=== PATIENT | female | born 1965 | race Caucasian/White ===

== ENCOUNTER 2022-07-13 16:16 | Emergency (ER) | payer OTHER, SELFPAY ==
--- NOTE | ~2022-07-13 | US_ITS ---
EXAMINATION: US VENOUS ULTRASOUND WITH DOPPLER LOWER EXTREMITY, BILATERAL CLINICAL INFORMATION: Pain. Swelling. History of recent travel. COMPARISON: None TECHNIQUE: Ultrasound of the deep veins is performed from the hip to the calf with compression sonography and color and pulse Doppler assessment. Spectral analysis with color-flow imaging is performed. FINDINGS: RIGHT: There is normal venous compression and respiratory variation and augmented flow. The visualized common femoral vein, superficial femoral vein, profunda femoral vein, popliteal vein, and the trifurcation region shows no evidence of deep venous thrombosis. There is no significant popliteal fossa cyst. LEFT: There is normal venous compression and respiratory variation and augmented flow. The visualized common femoral vein, superficial femoral vein, profunda femoral vein, popliteal vein, and the trifurcation region shows no evidence of deep venous thrombosis. There is no significant popliteal fossa cyst. If the patient's symptoms persist, followup ultrasound in 5 days 7 days might be of value to exclude proximal propagation from a non-visualized calf vein. US/US venous duplex LE BI IMPRESSION: No DVT demonstrated in the bilateral lower extremity.
--- NOTE | ~2022-07-13 | CT_ITS ---
EXAMINATION: CT HEAD WITHOUT CONTRAST CLINICAL INFORMATION: Dizziness. COMPARISON: None. TECHNIQUE: Contiguous axial imaging was performed from the skull base to vertex without intravenous administration of contrast. Coronal and sagittal reformatted images are performed at the CT scanner. [This CT examination was performed using dose optimization techniques as appropriate, variously including the following: *Automated exposure control *Adjustment of mA and/or kV according to patient size (this includes techniques or standardized protocols for targeted exams where dose is matched to indication/reason for exam; i.e. extremities or head) *Use of iterative reconstruction technique] DLP: 670 mGy-cm. FINDINGS: There is no evidence of acute intracranial hemorrhage or territorial infarction. No abnormal mass-effect or midline shift is seen. Goetz to white matter differentiation is well preserved. No extra-axial fluid collections are identified. The ventricles are normal in size. There is no abnormal attenuation within the brain parenchyma. There is no osseous abnormality. The mastoid air cells and visualized portions of the paranasal sinuses are well-aerated. CT/CT head/brain wo IV con IMPRESSION: No acute intracranial pathology.
--- NOTE | ~2022-07-13 | XR_ITS ---
EXAMINATION: XR CHEST CLINICAL INFORMATION: Shortness of breath. COMPARISON: None TECHNIQUE: Frontal view of the chest was obtained. 5:45 PM FINDINGS: No significant abnormality is noted involving the heart, lungs, mediastinum, bony thorax or soft tissues. XR/XR chest 1V IMPRESSION: Unremarkable examination.
--- NOTE | ~2022-07-13 | CT_ITS ---
EXAMINATION: CT ANGIOGRAM OF THE CHEST WITH AND WITHOUT CONTRAST (CT PULMONARY ANGIOGRAM FOR PE) CLINICAL INFORMATION: Reason for Exam CP, SOB, recent travel, elevated D-dimer COMPARISON: Chest x-ray 07/13/2022 TECHNIQUE: Prior to contrast administration, noncontrast localization images were obtained. Subsequently, multidetector volumetric imaging was performed from the thoracic inlet to below the diaphragms following the administration of 65 mL Omnipaque 350 intravenous contrast. No contrast reaction reported Sagittal, coronal, and MIP oblique sagittal reformatted images were obtained on the CT workstation, uploaded to PACS, and reviewed. This CT examination was performed using dose optimization techniques as appropriate, variously including the following: *Automated exposure control *Adjustment of mA and/or kV according to patient size (this includes techniques or standardized protocols for targeted exams where dose is matched to indication/reason for exam; i.e. extremities or head) *Use of iterative reconstruction technique Total exam dose-length product 349 mGy-cm FINDINGS: QUALITY OF STUDY/CONTRAST BOLUS: Satisfactory. PULMONARY ARTERIES: No central or segmental pulmonary emboli. THORACIC AORTA: No aneurysm or dissection. LUNG: No focal consolidation, nodules or masses. PLEURA: No pleural effusion or pneumothorax. MEDIASTINUM: Normal heart size. No pericardial effusion. No hilar or mediastinal lymphadenopathy. No evidence of septal bowing or right heart strain. CORONARY ARTERY CALCIFICATION: None visualized on this study. CHEST WALL/AXILLA: No axillary or internal mammary lymphadenopathy. OSSEOUS STRUCTURES: No acute or suspicious osseous abnormality. UPPER ABDOMEN: Multiple small scattered hypodense lesions of the liver. Largest measuring about 1 cm. These are too small to fully characterize. Probable hepatic cysts. No reflux of contrast into the hepatic veins to suggest elevated right heart pressures. CT/CT angio chest PE protocol IMPRESSION: Normal CT of chest. No evidence of pulmonary embolism. VTE: negative
--- NOTE | 2022-07-13 16:49 | ECG_ITS ---
Test Reason : SOB Blood Pressure : / mmHG Vent. Rate : 102 BPM Atrial Rate : 102 BPM P-R Int : 152 ms QRS Dur : 076 ms QT Int : 306 ms P-R-T Axes : 035 -07 -12 degrees QTc Int : 398 ms Sinus tachycardia Minimal voltage criteria for LVH, may be normal variant ( R in aVL ) ST & T wave abnormality, consider anterior ischemia Abnormal ECG No previous ECGs available Referred By: Tyson Shell Electronically Signed By:TOÑITO PERES MD
[2022-07-13 16:51] VITALS: PULSE 105; RESP 18; TEMP 37.8; O2SAT 98; BMI 37.8
--- NOTE | 2022-07-13 16:52 | ED_ITS ---
HPI - General Adult General Chief complaint: Arrhythmia/Palpitations <LILY Cameron - Last Filed: 07/14/22 11:29> Stated complaint: headache gait unsteady <LILY Cameron - Last Filed: 07/14/22 11:29> Time Seen by Provider: 07/13/22 17:40 <LILY Cameron - Last Filed: 07/14/22 11:29> Source: patient <Lemuel Atkinson MD - Last Filed: 07/13/22 22:56> Mode of arrival: ambulatory <Lemuel Atkinson MD - Last Filed: 07/13/22 22:56> Limitations: no limitations <Lemuel Atkinson MD - Last Filed: 07/13/22 22:56> History of Present Illness HPI narrative: 56-year-old female with a history of POTS syndrome who the presents emergency department for evaluation of headache, visual change, unable to sleep, feeling off balance. Patient states that she was diagnosed with POTS syndrome approximately 2 years prior and had a positive tilt-table test. She has been taking midodrine but she states for the past 2 months she thinks that her symptoms have returned. She states that she has been having constant palpitations. She feels like her heart is beating fast. She states she can feel her heart beating in her head and her neck. She states that she has had not been able sleep for 1 month secondary to the pounding sensation in her head. She did have a 72 hour Holter monitor and was told by her PCP that she had frequent PVCs. Patient states she traveled to [facility] for vacation from July 04 July 11, this was a 6 hour trip. She states that while she was in [facility] she did have swelling of her toes but this is since resolved and she has no pain or swelling in her lower extremities. She states that last night she was unable to sleep secondary to the constant, throbbing sensation in her head. She states that this the decision is 10/10 at its worst. She states that today she felt as if she was drunk and off balance. She states she also had a change in her vision which she describes as auras-lights around objects. The the she states that she does get occasional headaches but does not have a history of migraine syndrome. The patient's review of systems was negative for fever but she did have chills which she attributes to the midodrine. She states she was feeling short of breath and having dyspnea on exertion. Patient denied fever however when she went to an urgent care clinic today she was noted to have a temperature of a 100 degrees to degrees F and here in the emergency department her temperature was 100.0 degrees degrees F <Lemuel Atkinson MD - Last Filed: 07/13/22 22:56> Related Data Home medications: Previous Rx's Medication Instructions Recorded metoclopramide HCl 10 mg tablet 10 mg PO Q6H PRN nausea and 07/13/22 (Reglan) vomiting #14 tabs <LILY Cameron - Last Filed: 07/14/22 11:29> Allergies/adverse reactions: Allergies Allergy/AdvReac Type Severity Reaction Status Date / Time No Known Allergies Allergy Verified 07/13/22 16:49 <LILY Cameron - Last Filed: 07/14/22 11:29> Review of Systems Review of Systems: Yes all other systems are reviewed and are negative <Lemuel Atkinson MD - Last Filed: 07/13/22 22:56> [facility] Past Medical History [facility] Narrative: Past medical history: POTS syndrome. Social history: She denies tobacco use. She occasionally drinks alcohol. She denies drug use. She is a nurse. <Lemuel Atkinson MD - Last Filed: 07/13/22 22:56> Social History Social History: Social History Advance Directives: No Advance Directives Information Provided: No <LILY Cameron - Last Filed: 07/14/22 11:29> Physical Exam ED Vital Signs: Vital Signs - 24 hr 07/13/22 16:51 07/13/22 17:29 07/13/22 17:50 Temperature 100.0 F 98.4 F Pulse Rate 105 H 87 Respiratory Rate 18 20 Blood Pressure 75/45 L 124/75 Pulse Oximetry 98 98 Oxygen Delivery Method Room Air Room Air 07/13/22 19:57 07/13/22 22:08 Temperature 98.6 F Pulse Rate 94 81 Respiratory Rate 19 20 Blood Pressure 125/69 101/63 Pulse Oximetry 93 97 Oxygen Delivery Method Room Air Room Air BMI result Body Mass Index 37.8 <LILY Cameron - Last Filed: 07/14/22 11:29> Vital Signs - 24 hr 07/13/22 16:51 07/13/22 17:29 07/13/22 17:50 Temperature 100.0 F 98.4 F Pulse Rate 105 H 87 Respiratory Rate 18 20 Blood Pressure 75/45 L 124/75 Pulse Oximetry 98 98 Oxygen Delivery Method Room Air Room Air 07/13/22 19:57 07/13/22 22:08 Temperature 98.6 F Pulse Rate 94 81 Respiratory Rate 19 20 Blood Pressure 125/69 101/63 Pulse Oximetry 93 97 Oxygen Delivery Method Room Air Room Air BMI result Body Mass Index 37.8 <Lemuel Atkinson MD - Last Filed: 07/13/22 22:56> Const General: cooperative and no acute distress <Lemuel Atkinson MD - Last Filed: 07/13/22 22:56> Orientation/consciousness: oriented to person and oriented to place <Lemuel Atkinson MD - Last Filed: 07/13/22 22:56> Limitations: no limitations <Lemuel Atkinson MD - Last Filed: 07/13/22 22:56> HENMT Other: No tenderness palpation over temporal arteries, sinuses <Lemuel Atkinson MD - Last Filed: 07/13/22 22:56> Head: Yes normal to inspection, Yes normocephalic and Yes atraumatic <Lemuel Atkinson MD - Last Filed: 07/13/22 22:56> Ears: external ears normal <Lemuel Atkinson MD - Last Filed: 07/13/22 22:56> General nose exam: Normal external nose present <Lemuel Atkinson MD - Last Filed: 07/13/22 22:56> Face and sinus: Yes normal facial exam <Lemuel Atkinson MD - Last Filed: 07/13/22 22:56> Mouth: Normal oral and palatal mucosa present <MD Tierney Lim Last Filed: 07/13/22 22:56> Throat: Yes posterior oropharynx normal <MD Tierney Lim Last Filed: 07/13/22 22:56> Eyes General: appearance normal, both eyes and all related structures <Lemuel feliciano MD - Last Filed: 07/13/22 22:56> Pupils: Equal, round and reactive pupils present <MD Tierney Lim Last Filed: 07/13/22 22:56> Neck Neck: Yes normal visual inspection, Yes no lymphadenopathy, Yes trachea midline and Yes supple <Lemuel Atkinson MD - Last Filed: 07/13/22 22:56> Chest Chest palpation & inspection: normal inspection of the chest and normal palpation of entire chest wall <MD Tierney Lim Last Filed: 07/13/22 22:56> Resp Effort & Inspection: normal respiratory effort and able to speak in complete sentences <Vandana Atkinson MD - Last Filed: 07/13/22 22:56> Auscultation: clear to auscultation bilaterally <Lemuel Atkinson MD - Last Filed: 0 07/13/22 22:56> Cardio Rate: regular rate <MD Tierney Lim Last Filed: 07/13/22 22:56> Rhythm: regular rhythm <MD Tierney Lim Last Filed: 07/13/22 22:56> Heart sounds: S1 normal heart sound present, S2 normal heart sound present and no murmurs <MD Tierney Lim Last Filed: 07/13/22 22:56> GI Inspection: Yes normal to inspection <MD Tierney Lim Last Filed: 07/13/22 22:56> Palpation (GI): Soft to palpation, nontender and no guarding <MD Tierney Lim Last Filed: 07/13/22 22:56> Auscultation: normal bowel sounds <MD Tierney Lim Last Filed: 07/13/22 22:56> General: Yes no CVA tenderness <MD Tierney Lim Last Filed: 07/13/22 22:56> Back/Spine/Pelvis Back: no CVA tenderness <Lemuel Atkinson MD - Last Filed: 07/13/22 22:56> Skin General skin exam: no rashes or lesions noted <Lemuel Atkinson MD - Last Filed: 07/13/22 22:56> Neuro General: oriented to person and oriented to place <Lemuel Atkinson MD - Last Filed: 07/13/22 22:56> Cranial nerves: Yes CN's II-XII intact bilaterally and Yes Equal, round and reactive pupils present <Lemuel Atkinson MD - Last Filed: 07/13/22 22:56> Cognition (Neuro): normal cognition <Lemuel Atkinson MD - Last Filed: 07/13/22 22:56> Motor exam (neuro): 5/5 motor strength present throughout <Lemuel Atkinson MD - Last Filed: 07/13/22 22:56> Extrem Other: No pitting or nonpitting edema, negative Homans sign, no tenderness palpation of the calves or thighs <Lemuel Atkinson MD - Last Filed: 07/13/22 22:56> General: Yes normal to inspection <Lemuel Atkinson MD - Last Filed: 07/13/22 22:56> Psych Appearance: grossly normal <Lemuel Atkinson MD - Last Filed: 07/13/22 22:56> Speech and movement: Normal speech and movement present <Lemuel Atkinson MD - Last Filed: 07/13/22 22:56> Affect: normal affect <Lemuel Atkinson MD - Last Filed: 07/13/22 22:56> Attitude: cooperative <Lemuel Atkinson MD - Last Filed: 07/13/22 22:56> Thought process: Normal thought process present <Lemuel Atkinson MD - Last Filed: 07/13/22 22:56> Thought content: Normal thought content present <Lemuel Atkinson MD - Last Filed: 22:56> Course Course Course Narrative: RME: 56 yold female with pmh of POTS presents to the ED for headache, dizziness, and shortness of breath for 3 days. negative for any neurodeficits on exam. BIlateral lower extremities negative for swelling or pitting edmea. patient has normal gait. patient new vitals shows hypotension. Patient has been off her midirone. Patient to be brought to the bed in the main ED <LILY Cameron - Last Filed: 07/14/22 11:29> Medications Administered Discontinued Medications Generic Name Dose Route Start Last Admin Trade Name Freq PRN Reason Stop Dose Admin Diphenhydramine HCl 50 mg 07/13/22 18:26 07/13/22 19:34 Diphenhydramine Hcl 50 Mg/Ml Vial IVPUSH 07/13/22 18:27 50 mg ONCE STA Administration Sodium Chloride 1,000 mls @ 999 mls/hr 07/13/22 18:26 07/13/22 20:40 Ns IV 07/13/22 19:26 Infused .Q1H1M STA Infusion Iohexol 100 ml 07/13/22 19:53 07/13/22 19:53 Iohexol 350 Mg/Ml 100 Ml Infus..Btl IV 07/13/22 19:54 65 ml ONCE ONE Administration Ketorolac Tromethamine 15 mg 07/13/22 18:46 07/13/22 19:34 Ketorolac Tromethamine 15 Mg/Ml Vial IVPUSH 07/13/22 18:47 15 mg ONCE STA Administration Ketorolac Tromethamine 15 mg 07/13/22 21:42 07/13/22 22:40 Ketorolac Tromethamine 15 Mg/Ml Vial IVPUSH 07/13/22 21:43 Not Given ONCE ONE Metoclopramide HCl 10 mg 07/13/22 18:26 07/13/22 19:34 Metoclopramide Hcl 10 Mg/2 Ml Vial IVPUSH 07/13/22 18:27 10 mg ONCE STA Administration <LILY Cameron - Last Filed: 07/14/22 11:29> Medications Administered Discontinued Medications Generic Name Dose Route Start Last Admin Trade Name Freq PRN Reason Stop Dose Admin Diphenhydramine HCl 50 mg 07/13/22 18:26 07/13/22 19:34 Diphenhydramine Hcl 50 Mg/Ml Vial IVPUSH 07/13/22 18:27 50 mg ONCE STA Administration Sodium Chloride 1,000 mls @ 999 mls/hr 07/13/22 18:26 07/13/22 20:40 Ns IV 07/13/22 19:26 Infused .Q1H1M STA Infusion Iohexol 100 ml 07/13/22 19:53 07/13/22 19:53 Iohexol 350 Mg/Ml 100 Ml Infus..Btl IV 07/13/22 19:54 65 ml ONCE ONE Administration Ketorolac Tromethamine 15 mg 07/13/22 18:46 07/13/22 19:34 Ketorolac Tromethamine 15 Mg/Ml Vial IVPUSH 07/13/22 18:47 15 mg ONCE STA Administration Ketorolac Tromethamine 15 mg 07/13/22 21:42 07/13/22 22:40 Ketorolac Tromethamine 15 Mg/Ml Vial IVPUSH 07/13/22 21:43 Not Given ONCE ONE Metoclopramide HCl 10 mg 07/13/22 18:26 07/13/22 19:34 Metoclopramide Hcl 10 Mg/2 Ml Vial IVPUSH 07/13/22 18:27 10 mg ONCE STA Administration <Lemuel Atkinson MD - Last Filed: 07/13/22 22:56> Medical Decision Making Medical Decision Making MDM Narrative: 56-year-old female who presents emergency department for evaluation of throbbing headache, visual change, healing off balance, shortness of breath dyspnea on exertion. The patient has a history of POTS syndrome and states that the throbbing headache, feeling a sensation of throbbing in her neck has been going on for several months, worse the last month. Patient's headache however has become worse over the last 24 hours to the point where she is unable to sleep, she describes as a throbbing sensation which is constant and is 9/10 at its worst. The patient had a fever to 102 degrees F at an urgent care clinic today. RME at triage was done: The falling was ordered, CBC, BMP, CMP, PT/INR, PTT, troponin, EKG, chest x-ray, CT scan of the head without IV contrast. I added a COVID-19, flu, RSV, blood cultures x2, ESR. I will treat the patient for possible migraine with normal saline x1 L, Reglan 10 mg IV, Benadryl 50 mg IV and Toradol 15 mg IV 1909: D-dimer was elevated at [address] a [address] pulmonary angiogram PE protocol and bilateral lower extremity duplex ultrasounds rule out DVTs. Patient states she also developed diarrhea since she has been here in the emergency department and I ordered is C diff and GI panel. 2144: Duplex ultrasounds of the lower extremities were negative for DVT. CT pulmonary angiogram was negative for PE, no other abnormalities seen by the radiologist. Patient states that her headache pain did improve with the above treatment to 5/10. Patient was ordered to get another dose of Toradol 15 mg IV. Patient's sedimentation rate is pending. 9: Patient's sed rate was normal which is lose giant cell arteritis is the cause of her headaches and visual change. Patient was able to give us a stool sample which will be sent for testing. The patient will be discharged home and I did discuss taking the migraine cocktail as an outpatient: Regular 10 mg orally, Benadryl 50 mg orally and Excedrin migraine 2 pills orally. <Lemuel Atkinson MD - Last Filed: 07/13/22 22:56> Differential Diagnosis The differential includes was not limited to migraine headache, tumor with mass effect, giant cell arteritis, infectious process, RSV, influenza, COVID-19, PE, DVT <Lemuel Atkinson MD - Last Filed: 07/13/22 22:56> Lab Data MDM Lab Attestation statement: I reviewed the patient's lab results. <Lemuel Atkinson MD - Last Filed: 07/13/22 22:56> My interpretation patient's laboratory evaluation a 2nd there are no significant abnormalities to explain the patient's symptoms. High sensitive troponin I was below detectable limits. BNP was 10 which is normal. <Lemuel Atkinson MD - Last Filed: 07/13/22 22:56> Result Diagrams: 07/13/22 17:25 07/13/22 17:25 <LILY Cameron - Last Filed: 07/14/22 11:29> Labs: Lab Results 07/13/22 07/13/22 07/13/22 Range/Units 17:25 17:25 17:25 WBC 6.5 (4.8-10.8) X10*3/uL RBC 4.42 (4.20-5.50) X10*6/uL Hgb 13.7 (12.0-16.0) g/dl Hct 40.7 (37.0-47.0) % MCV 92.1 (80.0-98.0) fL MCH 31.0 (27.0-33.0) pg MCHC 33.7 (31.0-35.0) g/dl RDW 13.5 (11.0-16.0) % Plt Count 186 (160-400) X10*3/uL MPV 8.7 L (9.4-12.3) fL Immature Gran % (Auto) 0.2 (0.0-0.4) % Neut % (Auto) 80.8 H (45-73) % Lymph % (Auto) 10.9 L (20-40) % Crockett % (Auto) 7.6 (2-11) % Eos % (Auto) 0.0 (0-4) % Baso % (Auto) 0.5 (0-2) % Lymph # (Auto) 0.7 L (1.2-4.9) X10*3/uL Crockett # (Auto) 0.5 (0.1-1.2) X10*3/uL Eos # (Auto) 0.0 (0.0-0.4) X10*3/uL Baso # (Auto) 0.0 (0.0-0.2) X10*3/uL Abs Immat Gran (auto) 0.01 (0.00-0.03) X10*3/uL Absolute Neuts (auto) 5.2 (2.0-8.3) x10*3/uL Absolute Nucleated RBC 0.000 (0.0-0.012) X10*3/uL Nucleated RBC % (auto) 0.0 (0.0-0.2) /100WBC ESR PT (10.0-13.1) SEC INR (0.9-1.1) APTT (26.0-36.4) SEC D-Dimer High Sensitivty NG/ML Sodium 135 (135-145) mmol/L Potassium 3.8 (3.3-5.1) mmol/L Chloride 102 (96-108) mmol/L Carbon Dioxide 22 (22-29) mmol/L Anion Gap 15 (12-20) BUN 11 (9-16) mg/dL Creatinine 0.87 (0.5-1.4) mg/dL Estim Creat Clear Calc 86.8 Estimated GFR > 60 POC Glucose (60-115) mg/dL Random Glucose 100 (60-115) mg/dL Lactic Acid (0.5-2.0) mmol/L Calcium 8.9 (8.4-10.2) mg/dL Total Bilirubin 0.6 (0.0-1.0) mg/dL AST 63 H (5-31) U/L ALT 76 H (0-31) U/L Alkaline Phosphatase 63 (39-117) U/L Troponin I High Sens < 3.5 (<3.5-17.0) ng/L B-Natriuretic Peptide (<100) pg/mL Total Protein 6.9 (6.5-8.0) g/dL Albumin 3.9 (3.5-5.0) g/dL Stl C. cayetanensis PCR Stool Rotavirus A PCR Stl Adenov F 40/41 PCR Stool Astrovirus (PCR) Stool Campylobacter PCR Stool Cryptosporidium PCR Stl Sh Tox Pr E STEC PCR Stool E coli O157 PCR Stl Enterotoxigenic E PCR Stool EPEC (PCR) Stool EAEC (PCR) Stl E. histolytica PCR Stool Giardia Lamblia PCR Stl P. shigelloides PCR Stool Salmonella PCR Stool Sapovirus (PCR) Stl Shigella/EIEC PCR St Y.enterocolitica PCR Stool Vibrio (PCR) Stl Vibrio cholerae PCR Stl Norovirus GI/GII PCR C. difficile Tox B Gene (Negative) Influenza Type A (PCR) (Negative) Influenza Type B (PCR) (Negative) RSV RNA Qual (PCR) (Negative) SARS-CoV-2 RNA (RT-PCR) (Negative) 07/13/22 07/13/22 07/13/22 Range/Units 17:25 17:25 17:25 WBC (4.8-10.8) X10*3/uL RBC (4.20-5.50) X10*6/uL Hgb (12.0-16.0) g/dl Hct (37.0-47.0) % MCV (80.0-98.0) fL MCH (27.0-33.0) pg MCHC (31.0-35.0) g/dl RDW (11.0-16.0) % Plt Count (160-400) X10*3/uL MPV (9.4-12.3) fL Immature Gran % (Auto) (0.0-0.4) % Neut % (Auto) (45-73) % Lymph % (Auto) (20-40) % Crockett % (Auto) (2-11) % Eos % (Auto) (0-4) % Baso % (Auto) (0-2) % Lymph # (Auto) (1.2-4.9) X10*3/uL Crockett # (Auto) (0.1-1.2) X10*3/uL Eos # (Auto) (0.0-0.4) X10*3/uL Baso # (Auto) (0.0-0.2) X10*3/uL Abs Immat Gran (auto) (0.00-0.03) X10*3/uL Absolute Neuts (auto) (2.0-8.3) x10*3/uL Absolute Nucleated RBC (0.0-0.012) X10*3/uL Nucleated RBC % (auto) (0.0-0.2) /100WBC ESR Cancelled PT (10.0-13.1) SEC INR (0.9-1.1) APTT (26.0-36.4) SEC D-Dimer High Sensitivty NG/ML Sodium (135-145) mmol/L Potassium (3.3-5.1) mmol/L Chloride (96-108) mmol/L Carbon Dioxide (22-29) mmol/L Anion Gap (12-20) BUN (9-16) mg/dL Creatinine (0.5-1.4) mg/dL Estim Creat Clear Calc Estimated GFR POC Glucose (60-115) mg/dL Random Glucose (60-115) mg/dL Lactic Acid (0.5-2.0) mmol/L Calcium (8.4-10.2) mg/dL Total Bilirubin (0.0-1.0) mg/dL AST (5-31) U/L ALT (0-31) U/L Alkaline Phosphatase (39-117) U/L Troponin I High Sens (<3.5-17.0) ng/L B-Natriuretic Peptide 10 (<100) pg/mL Total Protein (6.5-8.0) g/dL Albumin (3.5-5.0) g/dL Stl C. cayetanensis PCR Stool Rotavirus A PCR Stl Adenov F PCR Stool Astrovirus (PCR) Stool Campylobacter PCR Stool Cryptosporidium PCR Stl Sh Tox Pr E STEC PCR Stool E coli O157 PCR Stl Enterotoxigenic E PCR Stool EPEC (PCR) Stool EAEC (PCR) Stl E. histolytica PCR Stool Giardia Lamblia PCR Stl P. shigelloides PCR Stool Salmonella PCR Stool Sapovirus (PCR) Stl Shigella/EIEC PCR St Y.enterocolitica PCR Stool Vibrio (PCR) Stl Vibrio cholerae PCR Stl Norovirus GI/GII PCR C. difficile Tox B Gene (Negative) Influenza Type A (PCR) NEGATIVE (Negative) Influenza Type B (PCR) NEGATIVE (Negative) RSV RNA Qual (PCR) NEGATIVE (Negative) SARS-CoV-2 RNA (RT-PCR) NEGATIVE (Negative) 07/13/22 07/13/22 07/13/22 Range/Units 17:26 17:26 18:35 WBC (4.8-10.8) X10*3/uL RBC (4.20-5.50) X10*6/uL Hgb (12.0-16.0) g/dl Hct (37.0-47.0) % MCV (80.0-98.0) fL MCH (27.0-33.0) pg MCHC (31.0-35.0) g/dl RDW (11.0-16.0) % Plt Count (160-400) X10*3/uL MPV (9.4-12.3) fL Immature Gran % (Auto) (0.0-0.4) % Neut % (Auto) (45-73) % Lymph % (Auto) (20-40) % Crockett % (Auto) (2-11) % Eos % (Auto) (0-4) % Baso % (Auto) (0-2) % Lymph # (Auto) (1.2-4.9) X10*3/uL Crockett # (Auto) (0.1-1.2) X10*3/uL Eos # (Auto) (0.0-0.4) X10*3/uL Baso # (Auto) (0.0-0.2) X10*3/uL Abs Immat Gran (auto) (0.00-0.03) X10*3/uL Absolute Neuts (auto) (2.0-8.3) x10*3/uL Absolute Nucleated RBC (0.0-0.012) X10*3/uL Nucleated RBC % (auto) (0.0-0.2) /100WBC ESR PT 12.8 (10.0-13.1) SEC INR 1.1 (0.9-1.1) APTT 30.8 (26.0-36.4) SEC D-Dimer High Sensitivty 510 NG/ML Sodium (135-145) mmol/L Potassium (3.3-5.1) mmol/L Chloride (96-108) mmol/L Carbon Dioxide (22-29) mmol/L Anion Gap (12-20) BUN (9-16) mg/dL Creatinine (0.5-1.4) mg/dL Estim Creat Clear Calc Estimated GFR POC Glucose 103 (60-115) mg/dL Random Glucose (60-115) mg/dL Lactic Acid (0.5-2.0) mmol/L Calcium (8.4-10.2) mg/dL Total Bilirubin (0.0-1.0) mg/dL AST (5-31) U/L ALT (0-31) U/L Alkaline Phosphatase (39-117) U/L Troponin I High Sens (<3.5-17.0) ng/L B-Natriuretic Peptide (<100) pg/mL Total Protein (6.5-8.0) g/dL Albumin (3.5-5.0) g/dL Stl C. cayetanensis PCR Stool Rotavirus A PCR Stl Adenov F 40/41 PCR Stool Astrovirus (PCR) Stool Campylobacter PCR Stool Cryptosporidium PCR Stl Sh Tox Pr E STEC PCR Stool E coli O157 PCR Stl Enterotoxigenic E PCR Stool EPEC (PCR) Stool EAEC (PCR) Stl E. histolytica PCR Stool Giardia Lamblia PCR Stl P. shigelloides PCR Stool Salmonella PCR Stool Sapovirus (PCR) Stl Shigella/EIEC PCR St Y.enterocolitica PCR Stool Vibrio (PCR) Stl Vibrio cholerae PCR Stl Norovirus GI/GII PCR C. difficile Tox B Gene (Negative) Influenza Type A (PCR) NEGATIVE (Negative) Influenza Type B (PCR) NEGATIVE (Negative) RSV RNA Qual (PCR) NEGATIVE (Negative) SARS-CoV-2 RNA (RT-PCR) NEGATIVE (Negative) 07/13/22 07/13/22 07/13/22 Range/Units 19:24 19:28 23:10 WBC (4.8-10.8) X10*3/uL RBC (4.20-5.50) X10*6/uL Hgb (12.0-16.0) g/dl Hct (37.0-47.0) % MCV (80.0-98.0) fL MCH (27.0-33.0) pg MCHC (31.0-35.0) g/dl RDW (11.0-16.0) % Plt Count (160-400) X10*3/uL MPV (9.4-12.3) fL Immature Gran % (Auto) (0.0-0.4) % Neut % (Auto) (45-73) % Lymph % (Auto) (20-40) % Crockett % (Auto) (2-11) % Eos % (Auto) (0-4) % Baso % (Auto) (0-2) % Lymph # (Auto) (1.2-4.9) X10*3/uL Crockett # (Auto) (0.1-1.2) X10*3/uL Eos # (Auto) (0.0-0.4) X10*3/uL Baso # (Auto) (0.0-0.2) X10*3/uL Abs Immat Gran (auto) (0.00-0.03) X10*3/uL Absolute Neuts (auto) (2.0-8.3) x10*3/uL Absolute Nucleated RBC (0.0-0.012) X10*3/uL Nucleated RBC % (auto) (0.0-0.2) /100WBC ESR 20 PT (10.0-13.1) SEC INR (0.9-1.1) APTT (26.0-36.4) SEC D-Dimer High Sensitivty NG/ML Sodium (135-145) mmol/L Potassium (3.3-5.1) mmol/L Chloride (96-108) mmol/L Carbon Dioxide (22-29) mmol/L Anion Gap (12-20) BUN (9-16) mg/dL Creatinine (0.5-1.4) mg/dL Estim Creat Clear Calc Estimated GFR POC Glucose (60-115) mg/dL Random Glucose (60-115) mg/dL Lactic Acid 1.1 (0.5-2.0) mmol/L Calcium (8.4-10.2) mg/dL Total Bilirubin (0.0-1.0) mg/dL AST (5-31) U/L ALT (0-31) U/L Alkaline Phosphatase (39-117) U/L Troponin I High Sens (<3.5-17.0) ng/L B-Natriuretic Peptide (<100) pg/mL Total Protein (6.5-8.0) g/dL Albumin (3.5-5.0) g/dL Stl C. cayetanensis PCR Stool Rotavirus A PCR Stl Adenov F 40/41 PCR Stool Astrovirus (PCR) Stool Campylobacter PCR Stool Cryptosporidium PCR Stl Sh Tox Pr E STEC PCR Stool E coli O157 PCR Stl Enterotoxigenic E PCR Stool EPEC (PCR) Stool EAEC (PCR) Stl E. histolytica PCR Stool Giardia Lamblia PCR Stl P. shigelloides PCR Stool Salmonella PCR Stool Sapovirus (PCR) Stl Shigella/EIEC PCR St Y.enterocolitica PCR Stool Vibrio (PCR) Stl Vibrio cholerae PCR Stl Norovirus GI/GII PCR C. difficile Tox B Gene NEGATIVE (Negative) Influenza Type A (PCR) (Negative) Influenza Type B (PCR) (Negative) RSV RNA Qual (PCR) (Negative) SARS-CoV-2 RNA (RT-PCR) (Negative) 07/13/22 Range/Units 23:10 WBC (4.8-10.8) X10*3/uL RBC (4.20-5.50) X10*6/uL Hgb (12.0-16.0) g/dl Hct (37.0-47.0) % MCV (80.0-98.0) fL MCH (27.0-33.0) pg MCHC (31.0-35.0) g/dl RDW (11.0-16.0) % Plt Count (160-400) X10*3/uL MPV (9.4-12.3) fL Immature Gran % (Auto) (0.0-0.4) % Neut % (Auto) (45-73) % Lymph % (Auto) (20-40) % Crockett % (Auto) (2-11) % Eos % (Auto) (0-4) % Baso % (Auto) (0-2) % Lymph # (Auto) (1.2-4.9) X10*3/uL Crockett # (Auto) (0.1-1.2) X10*3/uL Eos # (Auto) (0.0-0.4) X10*3/uL Baso # (Auto) (0.0-0.2) X10*3/uL Abs Immat Gran (auto) (0.00-0.03) X10*3/uL Absolute Neuts (auto) (2.0-8.3) x10*3/uL Absolute Nucleated RBC (0.0-0.012) X10*3/uL Nucleated RBC % (auto) (0.0-0.2) /100WBC ESR PT (10.0-13.1) SEC INR (0.9-1.1) APTT (26.0-36.4) SEC D-Dimer High Sensitivty NG/ML Sodium (135-145) mmol/L Potassium (3.3-5.1) mmol/L Chloride (96-108) mmol/L Carbon Dioxide (22-29) mmol/L Anion Gap (12-20) BUN (9-16) mg/dL Creatinine (0.5-1.4) mg/dL Estim Creat Clear Calc Estimated GFR POC Glucose (60-115) mg/dL Random Glucose (60-115) mg/dL Lactic Acid (0.5-2.0) mmol/L Calcium (8.4-10.2) mg/dL Total Bilirubin (0.0-1.0) mg/dL AST (5-31) U/L ALT (0-31) U/L Alkaline Phosphatase (39-117) U/L Troponin I High Sens (<3.5-17.0) ng/L B-Natriuretic Peptide (<100) pg/mL Total Protein (6.5-8.0) g/dL Albumin (3.5-5.0) g/dL Stl C. cayetanensis PCR Cancelled Stool Rotavirus A PCR Cancelled Stl Adenov F 40/41 PCR Cancelled Stool Astrovirus (PCR) Cancelled Stool Campylobacter PCR Cancelled Stool Cryptosporidium PCR Cancelled Stl Sh Tox Pr E STEC PCR Cancelled Stool E coli O157 PCR Cancelled Stl Enterotoxigenic E PCR Cancelled Stool EPEC (PCR) Cancelled Stool EAEC (PCR) Cancelled Stl E. histolytica PCR Cancelled Stool Giardia Lamblia PCR Cancelled Stl P. shigelloides PCR Cancelled Stool Salmonella PCR Cancelled Stool Sapovirus (PCR) Cancelled Stl Shigella/EIEC PCR Cancelled St Y.enterocolitica PCR Cancelled Stool Vibrio (PCR) Cancelled Stl Vibrio cholerae PCR Cancelled Stl Norovirus GI/GII PCR Cancelled C. difficile Tox B Gene (Negative) Influenza Type A (PCR) (Negative) Influenza Type B (PCR) (Negative) RSV RNA Qual (PCR) (Negative) SARS-CoV-2 RNA (RT-PCR) (Negative) <LILY Cameron - Last Filed: 07/14/22 11:29> Lab Results 07/13/22 07/13/22 07/13/22 Range/Units 17:25 17:25 17:25 WBC 6.5 (4.8-10.8) X10*3/uL RBC 4.42 (4.20-5.50) X10*6/uL Hgb 13.7 (12.0-16.0) g/dl Hct 40.7 (37.0-47.0) % MCV 92.1 (80.0-98.0) fL MCH 31.0 (27.0-33.0) pg MCHC 33.7 (31.0-35.0) g/dl RDW 13.5 (11.0-16.0) % Plt Count 186 (160-400) X10*3/uL MPV 8.7 L (9.4-12.3) fL Immature Gran % (Auto) 0.2 (0.0-0.4) % Neut % (Auto) 80.8 H (45-73) % Lymph % (Auto) 10.9 L (20-40) % Crockett % (Auto) 7.6 (2-11) % Eos % (Auto) 0.0 (0-4) % Baso % (Auto) 0.5 (0-2) % Lymph # (Auto) 0.7 L (1.2-4.9) X10*3/uL Crockett # (Auto) 0.5 (0.1-1.2) X10*3/uL Eos # (Auto) 0.0 (0.0-0.4) X10*3/uL Baso # (Auto) 0.0 (0.0-0.2) X10*3/uL Abs Immat Gran (auto) 0.01 (0.00-0.03) X10*3/uL Absolute Neuts (auto) 5.2 (2.0-8.3) x10*3/uL Absolute Nucleated RBC 0.000 (0.0-0.012) X10*3/uL Nucleated RBC % (auto) 0.0 (0.0-0.2) /100WBC ESR PT (10.0-13.1) SEC INR (0.9-1.1) APTT (26.0-36.4) SEC D-Dimer High Sensitivty NG/ML Sodium 135 (135-145) mmol/L Potassium 3.8 (3.3-5.1) mmol/L Chloride 102 (96-108) mmol/L Carbon Dioxide 22 (22-29) mmol/L Anion Gap 15 (12-20) BUN 11 (9-16) mg/dL Creatinine 0.87 (0.5-1.4) mg/dL Estim Creat Clear Calc 86.8 Estimated GFR > 60 POC Glucose (60-115) mg/dL Random Glucose 100 (60-115) mg/dL Lactic Acid (0.5-2.0) mmol/L Calcium 8.9 (8.4-10.2) mg/dL Total Bilirubin 0.6 (0.0-1.0) mg/dL AST 63 H (5-31) U/L ALT 76 H (0-31) U/L Alkaline Phosphatase 63 (39-117) U/L Troponin I High Sens < 3.5 (<3.5-17.0) ng/L B-Natriuretic Peptide (<100) pg/mL Total Protein 6.9 (6.5-8.0) g/dL Albumin 3.9 (3.5-5.0) g/dL Stl C. cayetanensis PCR Stool Rotavirus A PCR Stl Adenov F 40 PCR Stool Astrovirus (PCR) Stool Campylobacter PCR Stool Cryptosporidium PCR Stl Sh Tox Pr E STEC PCR Stool E coli O157 PCR Stl Enterotoxigenic E PCR Stool EPEC (PCR) Stool EAEC (PCR) Stl E. histolytica PCR Stool Giardia Lamblia PCR Stl P. shigelloides PCR Stool Salmonella PCR Stool Sapovirus (PCR) Stl Shigella/EIEC PCR St Y.enterocolitica PCR Stool Vibrio (PCR) Stl Vibrio cholerae PCR Stl Norovirus GI/GII PCR C. difficile Tox B Gene (Negative) Influenza Type A (PCR) (Negative) Influenza Type B (PCR) (Negative) RSV RNA Qual (PCR) (Negative) SARS-CoV-2 RNA (RT-PCR) (Negative) 07/13/22 07/13/22 07/13/22 Range/Units 17:25 17:25 17:25 WBC (4.8-10.8) X10*3/uL RBC (4.20-5.50) X10*6/uL Hgb (12.0-16.0) g/dl Hct (37.0-47.0) % MCV (80.0-98.0) fL MCH (27.0-33.0) pg MCHC (31.0-35.0) g/dl RDW (11.0-16.0) % Plt Count (160-400) X10*3/uL MPV (9.4-12.3) fL Immature Gran % (Auto) (0.0-0.4) % Neut % (Auto) (45-73) % Lymph % (Auto) (20-40) % Crockett % (Auto) (2-11) % Eos % (Auto) (0-4) % Baso % (Auto) (0-2) % Lymph # (Auto) (1.2-4.9) X10*3/uL Crockett # (Auto) (0.1-1.2) X10*3/uL Eos # (Auto) (0.0-0.4) X10*3/uL Baso # (Auto) (0.0-0.2) X10*3/uL Abs Immat Gran (auto) (0.00-0.03) X10*3/uL Absolute Neuts (auto) (2.0-8.3) x10*3/uL Absolute Nucleated RBC (0.0-0.012) X10*3/uL Nucleated RBC % (auto) (0.0-0.2) /100WBC ESR Cancelled PT (10.0-13.1) SEC INR (0.9-1.1) APTT (26.0-36.4) SEC D-Dimer High Sensitivty NG/ML Sodium (135-145) mmol/L Potassium (3.3-5.1) mmol/L Chloride (96-108) mmol/L Carbon Dioxide (22-29) mmol/L Anion Gap (12-20) BUN (9-16) mg/dL Creatinine (0.5-1.4) mg/dL Estim Creat Clear Calc Estimated GFR POC Glucose (60-115) mg/dL Random Glucose (60-115) mg/dL Lactic Acid (0.5-2.0) mmol/L Calcium (8.4-10.2) mg/dL Total Bilirubin (0.0-1.0) mg/dL AST (5-31) U/L ALT (0-31) U/L Alkaline Phosphatase (39-117) U/L Troponin I High Sens (<3.5-17.0) ng/L B-Natriuretic Peptide 10 (<100) pg/mL Total Protein (6.5-8.0) g/dL Albumin (3.5-5.0) g/dL Stl C. cayetanensis PCR Stool Rotavirus A PCR Stl Adenov F 40/41 PCR Stool Astrovirus (PCR) Stool Campylobacter PCR Stool Cryptosporidium PCR Stl Sh Tox Pr E STEC PCR Stool E coli O157 PCR Stl Enterotoxigenic E PCR Stool EPEC (PCR) Stool EAEC (PCR) Stl E. histolytica PCR Stool Giardia Lamblia PCR Stl P. shigelloides PCR Stool Salmonella PCR Stool Sapovirus (PCR) Stl Shigella/EIEC PCR St Y.enterocolitica PCR Stool Vibrio (PCR) Stl Vibrio cholerae PCR Stl Norovirus GI/GII PCR C. difficile Tox B Gene (Negative) Influenza Type A (PCR) NEGATIVE (Negative) Influenza Type B (PCR) NEGATIVE (Negative) RSV RNA Qual (PCR) NEGATIVE (Negative) SARS-CoV-2 RNA (RT-PCR) NEGATIVE (Negative) 07/13/22 07/13/22 07/13/22 Range/Units 17:26 17:26 18:35 WBC (4.8-10.8) X10*3/uL RBC (4.20-5.50) X10*6/uL Hgb (12.0-16.0) g/dl Hct (37.0-47.0) % MCV (80.0-98.0) fL MCH (27.0-33.0) pg MCHC (31.0-35.0) g/dl RDW (11.0-16.0) % Plt Count (160-400) X10*3/uL MPV (9.4-12.3) fL Immature Gran % (Auto) (0.0-0.4) % Neut % (Auto) (45-73) % Lymph % (Auto) (20-40) % Crockett % (Auto) (2-11) % Eos % (Auto) (0-4) % Baso % (Auto) (0-2) % Lymph # (Auto) (1.2-4.9) X10*3/uL Crockett # (Auto) (0.1-1.2) X10*3/uL Eos # (Auto) (0.0-0.4) X10*3/uL Baso # (Auto) (0.0-0.2) X10*3/uL Abs Immat Gran (auto) (0.00-0.03) X10*3/uL Absolute Neuts (auto) (2.0-8.3) x10*3/uL Absolute Nucleated RBC (0.0-0.012) X10*3/uL Nucleated RBC % (auto) (0.0-0.2) /100WBC ESR PT 12.8 (10.0-13.1) SEC INR 1.1 (0.9-1.1) APTT 30.8 (26.0-36.4) SEC D-Dimer High Sensitivty 510 NG/ML Sodium (135-145) mmol/L Potassium (3.3-5.1) mmol/L Chloride (96-108) mmol/L Carbon Dioxide (22-29) mmol/L Anion Gap (12-20) BUN (9-16) mg/dL Creatinine (0.5-1.4) mg/dL Estim Creat Clear Calc Estimated GFR POC Glucose 103 (60-115) mg/dL Random Glucose (60-115) mg/dL Lactic Acid (0.5-2.0) mmol/L Calcium (8.4-10.2) mg/dL Total Bilirubin (0.0-1.0) mg/dL AST (5-31) U/L ALT (0-31) U/L Alkaline Phosphatase (39-117) U/L Troponin I High Sens (<3.5-17.0) ng/L B-Natriuretic Peptide (<100) pg/mL Total Protein (6.5-8.0) g/dL Albumin (3.5-5.0) g/dL Stl C. cayetanensis PCR Stool Rotavirus A PCR Stl Adenov F 40/41 PCR Stool Astrovirus (PCR) Stool Campylobacter PCR Stool Cryptosporidium PCR Stl Sh Tox Pr E STEC PCR Stool E coli O157 PCR Stl Enterotoxigenic E PCR Stool EPEC (PCR) Stool EAEC (PCR) Stl E. histolytica PCR Stool Giardia Lamblia PCR Stl P. shigelloides PCR Stool Salmonella PCR Stool Sapovirus (PCR) Stl Shigella/EIEC PCR St Y.enterocolitica PCR Stool Vibrio (PCR) Stl Vibrio cholerae PCR Stl Norovirus GI/GII PCR C. difficile Tox B Gene (Negative) Influenza Type A (PCR) NEGATIVE (Negative) Influenza Type B (PCR) NEGATIVE (Negative) RSV RNA Qual (PCR) NEGATIVE (Negative) SARS-CoV-2 RNA (RT-PCR) NEGATIVE (Negative) 07/13/22 07/13/22 07/13/22 Range/Units 19:24 19:28 23:10 WBC (4.8-10.8) X10*3/uL RBC (4.20-5.50) X10*6/uL Hgb (12.0-16.0) g/dl Hct (37.0-47.0) % MCV (80.0-98.0) fL MCH (27.0-33.0) pg MCHC (31.0-35.0) g/dl RDW (11.0-16.0) % Plt Count (160-400) X10*3/uL MPV (9.4-12.3) fL Immature Gran % (Auto) (0.0-0.4) % Neut % (Auto) (45-73) % Lymph % (Auto) (20-40) % Crockett % (Auto) (2-11) % Eos % (Auto) (0-4) % Baso % (Auto) (0-2) % Lymph # (Auto) (1.2-4.9) X10*3/uL Crockett # (Auto) (0.1-1.2) X10*3/uL Eos # (Auto) (0.0-0.4) X10*3/uL Baso # (Auto) (0.0-0.2) X10*3/uL Abs Immat Gran (auto) (0.00-0.03) X10*3/uL Absolute Neuts (auto) (2.0-8.3) x10*3/uL Absolute Nucleated RBC (0.0-0.012) X10*3/uL Nucleated RBC % (auto) (0.0-0.2) /100WBC ESR 20 PT (10.0-13.1) SEC INR (0.9-1.1) APTT (26.0-36.4) SEC D-Dimer High Sensitivty NG/ML Sodium (135-145) mmol/L Potassium (3.3-5.1) mmol/L Chloride (96-108) mmol/L Carbon Dioxide (22-29) mmol/L Anion Gap (12-20) BUN (9-16) mg/dL Creatinine (0.5-1.4) mg/dL Estim Creat Clear Calc Estimated GFR POC Glucose (60-115) mg/dL Random Glucose (60-115) mg/dL Lactic Acid 1.1 (0.5-2.0) mmol/L Calcium (8.4-10.2) mg/dL Total Bilirubin (0.0-1.0) mg/dL AST (5-31) U/L ALT (0-31) U/L Alkaline Phosphatase (39-117) U/L Troponin I High Sens (<3.5-17.0) ng/L B-Natriuretic Peptide (<100) pg/mL Total Protein (6.5-8.0) g/dL Albumin (3.5-5.0) g/dL Stl C. cayetanensis PCR Stool Rotavirus A PCR Stl Adenov F PCR Stool Astrovirus (PCR) Stool Campylobacter PCR Stool Cryptosporidium PCR Stl Sh Tox Pr E STEC PCR Stool E coli O157 PCR Stl Enterotoxigenic E PCR Stool EPEC (PCR) Stool EAEC (PCR) Stl E. histolytica PCR Stool Giardia Lamblia PCR Stl P. shigelloides PCR Stool Salmonella PCR Stool Sapovirus (PCR) Stl Shigella/EIEC PCR St Y.enterocolitica PCR Stool Vibrio (PCR) Stl Vibrio cholerae PCR Stl Norovirus GI/GII PCR C. difficile Tox B Gene NEGATIVE (Negative) Influenza Type A (PCR) (Negative) Influenza Type B (PCR) (Negative) RSV RNA Qual (PCR) (Negative) SARS-CoV-2 RNA (RT-PCR) (Negative) 07/13/22 Range/Units 23:10 WBC (4.8-10.8) X10*3/uL RBC (4.20-5.50) X10*6/uL Hgb (12.0-16.0) g/dl Hct (37.0-47.0) % MCV (80.0-98.0) fL MCH (27.0-33.0) pg MCHC (31.0-35.0) g/dl RDW (11.0-16.0) % Plt Count (160-400) X10*3/uL MPV (9.4-12.3) fL Immature Gran % (Auto) (0.0-0.4) % Neut % (Auto) (45-73) % Lymph % (Auto) (20-40) % Crockett % (Auto) (2-11) % Eos % (Auto) (0-4) % Baso % (Auto) (0-2) % Lymph # (Auto) (1.2-4.9) X10*3/uL Crockett # (Auto) (0.1-1.2) X10*3/uL Eos # (Auto) (0.0-0.4) X10*3/uL Baso # (Auto) (0.0-0.2) X10*3/uL Abs Immat Gran (auto) (0.00-0.03) X10*3/uL Absolute Neuts (auto) (2.0-8.3) x10*3/uL Absolute Nucleated RBC (0.0-0.012) X10*3/uL Nucleated RBC % (auto) (0.0-0.2) /100WBC ESR PT (10.0-13.1) SEC INR (0.9-1.1) APTT (26.0-36.4) SEC D-Dimer High Sensitivty NG/ML Sodium (135-145) mmol/L Potassium (3.3-5.1) mmol/L Chloride (96-108) mmol/L Carbon Dioxide (22-29) mmol/L Anion Gap (12-20) BUN (9-16) mg/dL Creatinine (0.5-1.4) mg/dL Estim Creat Clear Calc Estimated GFR POC Glucose (60-115) mg/dL Random Glucose (60-115) mg/dL Lactic Acid (0.5-2.0) mmol/L Calcium (8.4-10.2) mg/dL Total Bilirubin (0.0-1.0) mg/dL AST (5-31) U/L ALT (0-31) U/L Alkaline Phosphatase (39-117) U/L Troponin I High Sens (<3.5-17.0) ng/L B-Natriuretic Peptide (<100) pg/mL Total Protein (6.5-8.0) g/dL Albumin (3.5-5.0) g/dL Stl C. cayetanensis PCR Cancelled Stool Rotavirus A PCR Cancelled Stl Adenov F 40/41 PCR Cancelled Stool Astrovirus (PCR) Cancelled Stool Campylobacter PCR Cancelled Stool Cryptosporidium PCR Cancelled Stl Sh Tox Pr E STEC PCR Cancelled Stool E coli O157 PCR Cancelled Stl Enterotoxigenic E PCR Cancelled Stool EPEC (PCR) Cancelled Stool EAEC (PCR) Cancelled Stl E. histolytica PCR Cancelled Stool Giardia Lamblia PCR Cancelled Stl P. shigelloides PCR Cancelled Stool Salmonella PCR Cancelled Stool Sapovirus (PCR) Cancelled Stl Shigella/EIEC PCR Cancelled St Y.enterocolitica PCR Cancelled Stool Vibrio (PCR) Cancelled Stl Vibrio cholerae PCR Cancelled Stl Norovirus GI/GII PCR Cancelled C. difficile Tox B Gene (Negative) Influenza Type A (PCR) (Negative) Influenza Type B (PCR) (Negative) RSV RNA Qual (PCR) (Negative) SARS-CoV-2 RNA (RT-PCR) (Negative) <Lemuel Atkinson MD - Last Filed: 07/13/22 22:56> Independent Interpretation I performed an independent interpretation of an: Plain X-Ray <Lemuel Atkinson MD - Last Filed: 07/13/22 22:56> Interpretation: My ended pen interpretation of the chest x-ray is as follows: No acute disease <Lemuel Atkinson MD - Last Filed: 07/13/22 22:56> Radiology Impression Discussion of test interpretation with radiology: I have reviewed the radiologist's reading. <Lemuel Atkinson MD - Last Filed: 07/13/22 22:56> Radiologist Impression: /CT head/brain wo IV con IMPRESSION: No acute intracranial pathology. Dictated By: Bhupinder Rene MD Signed By:<Electronically signed by Bhupinder Rene MD in [place]>07/13/[id number] XR chest 1V IMPRESSION: Unremarkable examination. Dictated By:Bhupinder Rene MD Signed By:<Electronically signed by Bhupinder Rene MD in [place]>07/13/[id number] <Lemuel Atkinson MD - Last Filed: 07/13/22 22:56> Discharge Plan Discharge Clinical Impression: Headache, Palpitation, Chest pain, Acute dyspnea, Diarrhea <LILY Cameron - Last Filed: 07/14/22 11:29> Patient Disposition: Home, Self-Care <LILY Cameron - Last Filed: 07/14/22 11:29> Additional Instructions: Your laboratory evaluation did reveal a slight elevation in your liver tests, AST and ALT of 63 and 76, this is nonspecific. Your high sensitivity troponin I (a marker of heart damage) was below detectable limits which is reassuring. Your D-dimer was elevated but this CT pulmonary angiogram PE protocol did not reveal any pulmonary emboli in your lungs or any significant abnormalities of your lungs to explain your shortness of breath/dyspnea. The CT scan of your head was normal. Your sedimentation rate was normal which is reassuring and suggests that you do not have giant cell arteritis as the cause of your headache and visual change Your COVID-19, influenza and RSV tests were negative. I do not have a good explanation for all of your symptom, but I do think that your headache is partly caused by a migraine syndrome. I want you to take the following 3 medications together every 6 hours as needed for headache, nausea or vomiting. Reglan (metoclopramide) in 10 mg, 1 pill Benadryl 25 mg, 2 pills Excedrin migraine, 2 pills. After you take these medications, lie down in a dark quiet room and try to fall asleep. These medications will make you sleepy, do not drive or work after taking these medications. I ordered a GI panel on your diarrheal stool, this tests for multiple organisms that can cause diarrhea. I also ordered a difficile PCR test. You can check these results on the patient portal or your doctor can check these tests for you. For diarrhea I want you to take Imodium 2 mg pills. Take 2 pills after the 1st loose, diarrheal stool then 1 pill after each loose, diarrheal stool up to 8 pills per day. This usually stops diarrhea within 24 hours. Follow-up with your doctor in 2 days. Please return to the emergency department if your symptoms get worse or if you develop any symptoms that are concerning to you. <LILY Cameron - Last Filed: 07/14/22 11:29> Prescriptions: New metoclopramide HCl [Reglan] 10 mg tablet 10 mg PO Q6H PRN (Reason: nausea and vomiting) Qty: 14 0RF <LIYL Cameron - Last Filed: 07/14/22 11:29> Stand Alone Forms: Work/School Release <LILY Cameron - Last Filed: 07/14/22 11:29> Interventions: ED Discharge Assessment Last Done: 07/13/22 23:09 <LILY Cameron - Last Filed: 07/14/22 11:29> Discharge Date/Time: 07/13/22 23:10 <LILY Cameron - Last Filed: 07/14/22 11:29>
[2022-07-13 17:29] VITALS: BP 75/45
[2022-07-13 17:30] LABS: Glucose, Whole Blood 103 mg/dL (60-115)
[2022-07-13 17:30] LABS: MANUAL DIFF FLAG NO
[2022-07-13 17:32] LABS: Basophils Percent Auto 0.5 % (0-2); Hematocrit 40.7 % (37.0-47.0); Hemoglobin 13.7 g/dl (12.0-16.0); Imm Gran Abs Auto 0.01 X10*3/uL (0.00-0.03); Imm Gran Pct Auto 0.2 % (0.0-0.4); Lymphocytes Absolute Auto 0.7 X10*3/uL (1.2-4.9); Lymphocytes Percent Auto 10.9 % (20-40); Mean Corpuscular HGB Conc 33.7 g/dl (31.0-35.0); Mean Corpuscular Volume 92.1 fL (80.0-98.0); Mean Platelet Volume 8.7 fL (9.4-12.3); Monocytes Absolute Auto 0.5 X10*3/uL (0.1-1.2); Monocytes Percent Auto 7.6 % (2-11); Neutrophils Absolute Auto 5.2 x10*3/uL (2.0-8.3); Neutrophils Percent Auto 80.8 % (45-73); Platelet Count 186 X10*3/uL (160-400); Red Blood Count 4.42 X10*6/uL (4.20-5.50); Red Cell Distribution Width 13.5 % (11.0-16.0); White Blood Count 6.5 X10*3/uL (4.8-10.8)
--- NOTE | 2022-07-13 17:32 | PC.NURSE ---
property coordinator aware patient hypotensive does have history of POTS takes midodrine 1x a day will CTM
[2022-07-13 17:38] LABS: INTERNATIONAL NORM RATIO 1.1 (0.9-1.1); Prothrombin Time 12.8 SEC (10.0-13.1)
[2022-07-13 17:41] LABS: Partial Thromboplastin Time 30.8 SEC (26.0-36.4)
[2022-07-13 17:47] LABS: Alanine Aminotransferase 76 U/L (0-31); Albumin Level 3.9 g/dL (3.5-5.0); Alkaline Phosphatase 63 U/L (39-117); Anion Gap 15 (12-20); Aspartate Amino Transferase 63 U/L (5-31); Bilirubin Total 0.6 mg/dL (0.0-1.0); Blood Urea Nitrogen 11 mg/dL (9-16); Calcium 8.9 mg/dL (8.4-10.2); Carbon Dioxide 22 mmol/L (22-29); Chloride 102 mmol/L (96-108); Creatinine Clr Calc Pharmacy 86.8; Estimated Glomerular Filt Rate > 60; Glucose Random 100 mg/dL (60-115); Potassium 3.8 mmol/L (3.3-5.1); Sodium 135 mmol/L (135-145); Total Protein 6.9 g/dL (6.5-8.0)
[2022-07-13 17:50] VITALS: BP 124/75; PULSE 87; RESP 20; TEMP 36.9; O2SAT 98
[2022-07-13 17:51] LABS: B Type Natriuretic Peptide 10 pg/mL (<100)
[2022-07-13 18:07] LABS: Influenza A PCR NEGATIVE (Negative); Influenza B PCR NEGATIVE (Negative); Resp Syncy Virus RNA Qual PCR NEGATIVE (Negative); SARS COV2 PCR INHOUSE NEGATIVE (Negative)
[2022-07-13 18:13] LABS: Troponin-I High Sensitivity < 3.5 ng/L (<3.5-17.0)
[2022-07-13 18:48] LABS: D Dimer High Sensitivity 510 NG/ML
[2022-07-13 19:18] LABS: Influenza A PCR NEGATIVE (Negative); Influenza B PCR NEGATIVE (Negative); Resp Syncy Virus RNA Qual PCR NEGATIVE (Negative); SARS COV2 PCR INHOUSE NEGATIVE (Negative)
[2022-07-13] MEDS: 0.9 % Sodium Chloride 1,000 ML 999 ML IV (19:33)
[2022-07-13] MEDS: Ketorolac Tromethamine 15 MG/ML VIAL IVPUSH (19:34)
[2022-07-13] MEDS: diphenhydrAMINE HCL 50 MG/ML VIAL IVPUSH (19:34)
[2022-07-13] MEDS: Metoclopramide HCl 10 MG/2 ML VIAL IVPUSH (19:34)
[2022-07-13 19:45] LABS: Lactic Acid 1.1 mmol/L (0.5-2.0)
[2022-07-13] MEDS: iohexoL 350 MG/ML 100 ML INFUS..BTL IV (19:53)
[2022-07-13 19:57] VITALS: BP 125/69; PULSE 94; RESP 19; O2SAT 93
--- NOTE | 2022-07-13 20:45 | PC.NURSE ---
This medical underwriter assumed care of this PT at 1900. PT A&Ox4, reports 03/07 headache pain, describes it at pounding. VSS. IV established. Meds given as documented. dealer support technician at bedside waiting to take PT.
--- NOTE | 2022-07-13 21:33 | PC.NURSE ---
PT resting quietly, reports effectiveness to meds given, 5/10 headache, states I don't want any more of that, I don't like how it made me feel . Will CTM.
[2022-07-13 22:04] LABS: Erythrocyte Sedimentation Rate 20 MM/HR (0-20)
[2022-07-13 22:08] VITALS: BP 101/63; PULSE 81; RESP 20; TEMP 37; O2SAT 97
--- NOTE | 2022-07-13 23:05 | PC.NURSE ---
PT declined pain med prior to d/c. Provider aware.
[2022-07-14 00:23] LABS: CDiff Gene PCR NEGATIVE (Negative)
== END 2022-07-13 23:10 | disposition home or self-care (01) ==
PROVIDERS: Physician Assistant; Emergency Provider Emergency Medicine Emergency Medical Services
DX: R00.2 Palpitations (principal); R51.9 Headache, unspecified; R07.9 Chest pain, unspecified; R06.00 Dyspnea, unspecified; R19.7 Diarrhea, unspecified; R06.02 Shortness of breath; Z20.822 Contact with and (suspected) exposure to COVID-19; Z20.828 Contact with and (suspected) exposure to other viral communicable diseases; G90.A Postural orthostatic tachycardia syndrome [POTS]; Z79.899 Other long term (current) drug therapy
CPT/HCPCS: 0241U; 36415; 70450; 71045; 71275; 80053; 82947; 83605; 83880; 84484; 85025; 85379; 85610; 85652; 85730; 87040; 87493; 87507; 93005; 93970; 96361; 96374; 96375; 99285; J1200; J1885; J2765; Q9967

== ENCOUNTER 2024-10-25 03:52 | Observation (INO) | payer OTHER, SELFPAY ==
[2024-10-25] VITALS (17 sets, daily range): BP systolic 90–145; BP diastolic 50–78; PULSE 68–85; RESP 14–20; TEMP 36.2–37.4; O2SAT 93–99; BMI 38.9
--- NOTE | ~2024-10-25 | CT_ITS ---
CLINICAL HISTORY: RLQ, R flank pain R O kidney stone, appendicitis CT abdomen and pelvis with contrast Comparison: CT - CT ABDOMEN PELVIS W IV CON - 10/25/24 05:50 EDT Findings: No consolidation or effusion. The patient is status post cholecystectomy. Multiple small hepatic hypodensities are noted consistent with cysts/hemangiomata. There are left renal parapelvic cysts. The rest of the solid organs are unremarkable. Multiple discrete hepatic hypodensities consistent with cysts/hemangiomata. No bowel obstruction, pneumoperitoneum, or pneumatosis. There is acute appendicitis without evidence of perforation. The appendix measures up to 1.5 cm in diameter. Mild periappendiceal inflammatory changes are noted. The bones are intact. IMPRESSION: 1. Acute appendicitis. 2. Left renal parapelvic cysts. 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 This document has been electronically signed by: Wai Willoughby MD on 10/25/2024 07:24:58
[2024-10-25 04:21] LABS: MANUAL DIFF FLAG NO
[2024-10-25 04:22] LABS: Basophils Percent Auto 0.3 % (0-2); Eosinophils Absolute Auto 0.1 X10*3/uL (0.0-0.4); Eosinophils Percent Auto 0.5 % (0-4); Hematocrit 40.4 % (37.0-47.0); Hemoglobin 13.8 g/dl (12.0-16.0); Imm Gran Abs Auto 0.08 X10*3/uL (0.00-0.03); Imm Gran Pct Auto 0.7 % (0.0-0.4); Lymphocytes Absolute Auto 1.2 X10*3/uL (1.2-4.9); Mean Corpuscular HGB Conc 34.2 g/dl (31.0-35.0); Mean Corpuscular Hemoglobin 31.3 pg (27.0-33.0); Mean Corpuscular Volume 91.6 fL (80.0-98.0); Mean Platelet Volume 8.4 fL (9.4-12.3); Monocytes Absolute Auto 1.1 X10*3/uL (0.1-1.2); Monocytes Percent Auto 8.8 % (2-11); Neutrophils Absolute Auto 9.6 x10*3/uL (2.0-8.3); Neutrophils Percent Auto 79.7 % (45-73); Platelet Count 264 X10*3/uL (160-400); Red Blood Count 4.41 X10*6/uL (4.20-5.50); Red Cell Distribution Width 13.5 % (11.0-16.0)
[2024-10-25 04:23] LABS: Appearance Urine Clear; Color Urine Yellow; Glucose Urine UA Negative (Negative); Leukocyte Esterase Urine Negative (Negative); Nitrite Urine Negative (Negative); PH >= 9.0 (5.0-9.0); Urine Blood Negative (Negative); Urine Ketones Negative (Negative); Urine Protein Negative (Neg-Trace)
[2024-10-25 04:45] LABS: Alanine Aminotransferase 26 U/L (0-31); Albumin Level 4.4 g/dL (3.5-5.0); Alkaline Phosphatase 69 U/L (39-117); Anion Gap 14 (12-20); Aspartate Amino Transferase 25 U/L (5-31); Bilirubin Direct 0.1 mg/dL (0.0-0.5); Bilirubin Total 0.4 mg/dL (0.0-1.0); Blood Urea Nitrogen 11 mg/dL (9-16); Carbon Dioxide 24 mmol/L (22-29); Chloride 105 mmol/L (96-108); Estimated Glomerular Filt Rate > 60; Glucose Random 123 mg/dL (60-115); Lipase 35 U/L (8-78); Potassium 4.2 mmol/L (3.3-5.1); Sodium 139 mmol/L (135-145); Total Protein 7.8 g/dL (6.5-8.0)
--- OUTSIDE RECORDS SUMMARY | 2024-10-25 04:57 | XMS_ITS ---
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 :1965???Age:58 Y???Sex:Female D ate:07/11/2024 Address:[address] [place], [place] [id number] Subjective: * Chief Complaints: * ???1. Annual HOME VISITOR HOME B[employer] HEAD START Physical. * Medical History:? Objective: * Vitals:? Assessment: Plan: * Treatment: * Images: Billing Information: * Visit Code:? * Procedure Codes:? * Electronic signature of Maegan Recinos MD on 10/25/2024 at 04:57 AM EDT Sign off status: Pending * Appointment Provider:?Milagro Recinos M.D. Date:?07/11/2024 Generated for Aubrey oconnell/Marlena/Santysmitting on:?10/25/2024 04:57 AM EDT
--- NOTE | 2024-10-25 05:31 | ED_ITS ---
HPI - Abdominal Pain General Chief Complaint: Abdominal Pain Stated Complaint: abd pain Time Seen by Provider: 10/25/24 05:20 Source: patient Mode of arrival: ambulatory Limitations: no limitations History of Present Illness ED Provider: Dr. Lemuel Atkinson HPI narrative: 59-year-old female with a history of hypotension on midodrine, POTS syndrome who presents emergency department for evaluation of right lower quadrant and right flank pain associated with nausea, vomiting and chills. Patient had a sudden onset of right lower quadrant pain radiating to to the right flank area. Pain started at 23:00 hours and has been constant but waxes and wanes in intensity. The pain is currently 9/10. Patient states she had nausea and did vomit. She states that the emesis consisted of a roast beef sandwich that she ate at around 13:00 hours. The patient denied frequency, urgency or dysuria. Patient had a cholecystectomy in the past with no other abdominal surgeries. Related Data Previous Rx's ?Medication ?Instructions ?Recorded metoclopramide HCl 10 mg tablet 10 mg PO Q6H PRN nausea and 07/13/22 (Reglan) vomiting #14 tabs Allergies Allergy/AdvReac Type Severity Reaction Status Date / Time No Known Allergies Allergy Verified 10/25/24 04:02 Review of Systems Review of Systems Yes all other systems are reviewed and are negative [facility] Past Medical History [facility] Narrative: Social history: She denies tobacco use. She rarely drinks alcohol. She denies drug use. Social History Social History Alcohol intake: current Smoked in Last 30 Days: No Use of substances other than those prescribed or required for medical reasons: No Advance Directives: No Advance Directives Information Provided: Yes Do you have a plan to hurt others: No Plan Physical Exam ED Vital Signs: Vital Signs - 24 hr 10/25/24 04:00 10/25/24 04:05 10/25/24 05:45 Temperature 98.2 F Pulse Rate 85 82 68 Respiratory Rate 16 18 Blood Pressure 145/78 H 145/78 H 119/68 Pulse Oximetry 98 93 Oxygen Delivery Method Room Air Room Air 10/25/24 07:25 Temperature 97.2 F Pulse Rate 70 Respiratory Rate 16 Blood Pressure 100/50 L Pulse Oximetry 97 Oxygen Delivery Method Room Air BMI result Body Mass Index 38.9 Vital signs revealed an elevated blood pressure otherwise unremarkable Exam: General: Awake, alert , in mild to moderate distress secondary to her pain Head: Normocephalic, atraumatic EENT: PERRL, Lids normal, sclera normal, conjunctiva normal, nose normal , ears normal, throat without erythema or exudates Neck: Supple, no adenopathy Lung: breath sounds symmetric, no wheezing, rales or rhonchi Chest: symmetric movement, nontender Heart: regular rate and rhythm, normal S1, S2 no murmurs or rubs Abdomen: soft, moderate right upper quadrant tenderness with a negative Greco sign, mild left lower quadrant tenderness nondistended, normal bowel sounds Back: no vertebral tenderness, no CVAT Extremities: no deformities, moves all extremities symmetrically Neuro: Awake, alert, oriented, normal speech, cranial nerves intact, moves all extremities symmetrically Psych: Pleasant, cooperative Skin: No rash noted in the area of her tenderness Medical Decision Making Medical Decision Making MDM Narrative: 59-year-old female with a history of hypotension on midodrine, LING syndrome who presents emergency department for evaluation of right lower quadrant and right flank pain associated with nausea, vomiting and chills. Pain came on suddenly at 23:00 hours, has been constant but waxing and waning in intensity. Pain is 9/10 at the time my evaluation. Vital signs revealed an elevated blood pressure otherwise unremarkable. Patient does have right upper and right lower quadrant tenderness with no CVA tenderness. Differential diagnosis: ?Includes but is not limited to biliary disease, pancreatitis, gastritis, diverticulitis, appendicitis, shingles, anemia, electrolyte abnormalities Course: My interpretation patient's laboratory evaluation as follows: WBC elevated 12,000. Glucose elevated 123. LFTs were normal. Lipase was normal. Urinalysis was negative. Patient was ordered to get morphine 4 mg IV, Zofran 4 mg IV, Toradol 15 mg IV, normal saline x1 L. I ordered a CT scan of the abdomen pelvis with IV contrast to further evaluate the patient's abdominal pain. 07:41 The patient's pain did improve with the above treatment and her pain is now 4/10. She does not want any more pain medication at this time. CT scan is concerning for acute appendicitis. I did discuss the patient's presentation over tiger text with the covering hospitalist, Dr. Benjamin and he will evaluate the patient here in the emergency department. Patient was ordered to get Zosyn 4.5 g IV. Patient will be kept NPO. Admission/Observation Consideration of admission/observation: Escalation of care including admission/observation considered (Yes) Consult Healthcare Provider Management of the patient was discussed with: Line Installer Repairer (Surgeon on-call, Dr. Benjamin) Lab Data MDM Lab Attestation statement: I reviewed the patient's lab results. 10/25/24 04:14 10/25/24 04:14 Labs: Lab Results 10/25/24 Range/Units 04:14 WBC 12.0 H (4.8-10.8) X10*3/uL RBC 4.41 (4.20-5.50) X10*6/uL Hgb 13.8 (12.0-16.0) g/dl Hct 40.4 (37.0-47.0) % MCV 91.6 (80.0-98.0) fL MCH 31.3 (27.0-33.0) pg MCHC 34.2 (31.0-35.0) g/dl RDW 13.5 (11.0-16.0) % Plt Count 264 D (160-400) X10*3/uL MPV 8.4 L (9.4-12.3) fL Immature Gran % (Auto) 0.7 H (0.0-0.4) % Neut % (Auto) 79.7 H (45-73) % Lymph % (Auto) 10.0 L (20-40) % [place] % (Auto) 8.8 (2-11) % Eos % (Auto) 0.5 (0-4) % Baso % (Auto) 0.3 (0-2) % Lymph # (Auto) 1.2 (1.2-4.9) X10*3/uL [place] # (Auto) 1.1 (0.1-1.2) X10*3/uL Eos # (Auto) 0.1 (0.0-0.4) X10*3/uL Baso # (Auto) 0.0 (0.0-0.2) X10*3/uL Abs Immat Gran (auto) 0.08 H (0.00-0.03) X10*3/uL Absolute Neuts (auto) 9.6 H (2.0-8.3) x10*3/uL Absolute Nucleated RBC 0.000 (0.0-0.012) X10*3/uL Nucleated RBC % (auto) 0.0 (0.0-0.2) /100WBC Sodium 139 (135-145) mmol/L Potassium 4.2 (3.3-5.1) mmol/L Chloride 105 (96-108) mmol/L Carbon Dioxide 24 (22-29) mmol/L Anion Gap 14 (12-20) BUN 11 (9-16) mg/dL Creatinine 0.77 (0.5-1.4) mg/dL Estim Creat Clear Calc 96.0 Estimated GFR > 60 Random Glucose 123 H (60-115) mg/dL Calcium 10.0 D (8.4-10.2) mg/dL Total Bilirubin 0.4 (0.0-1.0) mg/dL Direct Bilirubin 0.1 (0.0-0.5) mg/dL AST 25 (5-31) U/L ALT 26 (0-31) U/L Alkaline Phosphatase 69 (39-117) U/L Total Protein 7.8 (6.5-8.0) g/dL Albumin 4.4 (3.5-5.0) g/dL Lipase 35 (8-78) U/L Urine Color Yellow Urine Appearance Clear Urine pH >= 9.0 (5.0-9.0) Ur Specific [place] 1.020 (1.005-1.025) Urine Protein Negative (Neg-Trace) mg/dL Urine Glucose (UA) Negative (Negative) mg/dL Urine Ketones Negative (Negative) mg/dL Urine Blood Negative (Negative) Urine Nitrite Negative (Negative) Ur Leukocyte Esterase Negative (Negative) Radiology Impression Discussion of test interpretation with radiology: I have reviewed the radiologist's reading. Radiologist Impression: CT abdomen and pelvis with contrast Comparison: CT - CT ABDOMEN PELVIS W IV CON - 10/25/24 05:50 EDT Findings: No consolidation or effusion. The patient is status post cholecystectomy. Multiple small hepatic hypodensities are noted consistent with cysts/hemangiomata. There are left renal parapelvic cysts. The rest of the solid organs are unremarkable. Multiple discrete hepatic hypodensities consistent with cysts/hemangiomata. No bowel obstruction, pneumoperitoneum, or pneumatosis. There is acute appendicitis without evidence of perforation. The appendix measures up to 1.5 cm in diameter. Mild periappendiceal inflammatory changes are noted. The bones are intact. IMPRESSION: 1. Acute appendicitis. 2. Left renal parapelvic cysts. 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 Medications Administered Discontinued Medications Generic Name Dose Route Start Last Admin Trade Name Freq PRN Reason Stop Dose Admin Sodium Chloride 1,000 mls @ 999 mls/hr 10/25/24 05:29 10/25/24 07:25 Ns IV 10/25/24 06:29 Infused .Q1H1M STA Infusion Iohexol 85 ml 10/25/24 06:03 10/25/24 06:04 Iohexol 350 Mg/Ml 100 Ml Infus..Btl IV 10/25/24 06:04 85 ml ONCE ONE Administration Ketorolac Tromethamine 15 mg 10/25/24 05:29 10/25/24 05:35 Ketorolac Tromethamine 15 Mg/Ml Vial IVPUSH 10/25/24 05:30 15 mg ONCE STA Administration Morphine Sulfate 4 mg 10/25/24 05:29 10/25/24 05:35 Morphine Sulfate 4 Mg/Ml Cartridge IVPUSH 10/25/24 05:30 4 mg ONCE STA Administration Protocol Ondansetron HCl 4 mg 10/25/24 05:29 10/25/24 05:34 Ondansetron Hcl 4 Mg/2 Ml Vial IVPUSH 10/25/24 05:30 4 mg ONCE ONE Administration Discharge Plan Discharge Patient Disposition: Admitted As Inpatient Prescriptions: No Action metoclopramide HCl [Reglan] 10 mg tablet 10 mg PO Q6H PRN (Reason: nausea and vomiting) Qty: 14 0RF Print Language: Polish
[2024-10-25] MEDS: 0.9 % Sodium Chloride 1,000 ML 999 ML IV (05:34)
[2024-10-25] MEDS: ondansetron HCL 4 MG/2 ML VIAL IVPUSH (05:34)
[2024-10-25] MEDS: Ketorolac Tromethamine 15 MG/ML VIAL IVPUSH (05:35)
[2024-10-25] MEDS: Morphine Sulfate 4 MG/ML CARTRIDGE IVPUSH ×2 (05:35→08:25)
[2024-10-25] MEDS: iohexoL 350 MG/ML 100 ML INFUS..BTL 85 ML IV (06:04)
--- NOTE | 2024-10-25 07:26 | PC.NURSE ---
Pt in no acute distress at this time; reports R flank pain is 4/10; denies N/V at this time; vss; waiting CT scan results
--- NOTE | 2024-10-25 07:43 | ECG_ITS ---
Test Reason : ACUTE APPENDICITIS Blood Pressure : */* mmHG Vent. Rate : 70 BPM Atrial Rate : 70 BPM P-R Int : 172 ms QRS Dur : 84 ms QT Int : 384 ms P-R-T Axes : 38 -7 -2 degrees QTcB Int : 414 ms Normal sinus rhythm Minimal voltage criteria for LVH, may be normal variant ( R in aVL ) Cannot rule out Anterior infarct , age undetermined Abnormal ECG When compared with ECG of 13-Jul-2022 17:07, Nonspecific T wave abnormality has replaced inverted T waves in Anterior leads Referred By: Lemuel Atkinson Electronically Signed By: Yuniel Walton
[2024-10-25] MEDS: Piperacillin Sodium/Tazobactam 4.5 GM in 0.9 % Sodium Chloride 100 ML IV (07:52)
[2024-10-25] MEDS: Lactated Ringers 1,000 ML 100 ML IVCONT ×2 (08:25→17:40)
--- NOTE | 2024-10-25 08:27 | P.HPGS_ITS ---
History of Present Illness History of Present Illness Date of Service: 10/25/24 <Víctor Skinner PA-C - Last Filed: 10/25/24 12:45> 10/25/24 <Fabian Benjamin MD - Last Filed: 10/25/24 12:56> Chief complaint: Acute Appendicitis <Víctor Skinner PA-C - Last Filed: 10/25/24 12:45> Narrative: Marilyn Bates is a 59 year old female experiencing abdominal pain that began last night. Patient was out to dinner when her pain began, and it gradually increased throughout the night. Pain worsened, and she eventually became nauseous and had an episode of vomiting in which she notes undigested food. She is still having generalized abdominal pain with the epicenter benign the right lower quadrant. Still experiencing nausea. States she felt chills last night, did not take her temperature. Surgical history includes laparoscopic cholecystectomy. She has not had anything to eat since last night. Patient denies smoking endorses occasional alcohol use. <Víctor Skinner PA-C - Last Filed: 10/25/24 12:45> Review of Systems Constitutional: Constitutional: Reports chills <Víctor Skinner PA-C - Last Filed: 10/25/24 12:45> Respiratory: Respiratory: Reports no additional respiratory complaints <Víctor Skinner PA-C - Last Filed: 10/25/24 12:45> Gastrointestinal: Gastrointestinal: Reports abdominal pain (Generalized pain focus in right lower quadrant), Reports nausea and Reports vomiting (Episode of vomiting last night) <Víctor Skinner PA-C - Last Filed: 10/25/24 12:45> [facility] Surgical History Surgical History: Surgical History S/P laparoscopic cholecystectomy <Víctor Skinner PA-C - Last Filed: 10/25/24 12:45> Social History Social History: Social History Alcohol intake: current Patient Tobacco Use Status: Never used Tobacco Smoked in Last 30 Days: No Use of substances other than those prescribed or required for medical reasons: No Advance Directives: No Advance Directives Information Provided: Yes Do you have a plan to hurt others: No Plan Nutrition Risks: No Nutritional Risk <Víctor Skinner PA-C - Last Filed: 10/25/24 12:45> Meds Allergies/Adverse reactions: Allergies Allergy/AdvReac Type Severity Reaction Status Date / Time No Known Allergies Allergy Verified 10/25/24 04:02 <Víctor Skinner PA-C - Last Filed: 10/25/24 12:45> Active Medications: Current Medications Acetaminophen (Acetaminophen 325 Mg Tablet) 650 mg PO Q6H PRN PRN Reason: Pain, Mild 1-3,fever,headache Calcium Carbonate (Calcium Carbonate 750 Mg Tab.Chew) 750 mg PO Q4H PRN PRN Reason: Heartburn Docusate Sodium (Docusate Sodium 100 Mg Capsule) 100 mg PO BID [facility] Last Admin: 10/25/24 08:20 Dose: Not Given Lactated Ringer's (Lr) 1,000 mls @ 100 mls/hr IVCONT .Q10H [facility] Last Admin: 10/25/24 08:25 Dose: 100 mls/hr Piperacillin Sod/Tazobactam (Sod 3.375 gm/ Sodium Chloride) 50 mls @ 100 mls/hr IV Q6H [facility] Last Admin: 10/25/24 08:20 Dose: Not Given Magnesium Hydroxide (Milk Of Magnesia 30 Ml Oral.Susp) 30 ml PO DAILY PRN PRN Reason: Constipation Melatonin (Melatonin 3 Mg Tablet) 6 mg PO BEDTIME PRN PRN Reason: Insomnia Morphine Sulfate (Morphine Sulfate 4 Mg/Ml Cartridge) 4 mg IVPUSH Q4H PRN; Protocol PRN Reason: Pain, Severe (Pain Scale 7-10) Ondansetron HCl (Ondansetron Hcl 4 Mg/2 Ml Vial) 4 mg IVPUSH Q8H PRN PRN Reason: Nausea and Vomiting Sodium Chloride (0.9 % Sodium Chloride Flush 3 Ml Syringe) 3 ml IVFLUSH QSHIFT [facility] <Víctor Skinner PA-C - Last Filed: 10/25/24 12:45> Home medications: Home Medications ?Medication ?Instructions ?Recorded ?Confirmed ?Last Taken ?Type Lactobacillus rhamnosus GG 10 1 cap PO DAILY 10/25/24 10/25/24 10/24/24 History billion cell capsule (Culturelle) ascorbic acid (vitamin C) 500 mg 500 mg PO DAILY 10/25/24 10/25/24 10/24/24 History tablet (Vitamin C) cholecalciferol (vitamin D3) 25 25 mcg PO DAILY 10/25/24 10/25/24 10/24/24 History mcg (1,000 unit) tablet (Vitamin D3) meloxicam 15 mg tablet 15 mg PO DAILY PRN Pain 10/25/24 10/25/24 Unknown History metoprolol succinate 25 mg 25 mg PO DAILY 10/25/24 10/25/24 10/25/24 History tablet,extended release 24 hr midodrine 5 mg tablet 5 mg PO TIDWM PRN Hypotension 10/25/24 10/25/24 Unknown History omeprazole 40 mg capsule,delayed 40 mg PO DAILY@0630 10/25/24 10/25/24 10/24/24 History release zinc 10 mg tablet 10 mg PO DAILY 10/25/24 10/25/24 Unknown History <Víctor Skinner PA-C - Last Filed: 10/25/24 12:45> Physical Exam Vital Signs: Vital Signs: Last Vital Signs Temp 97.2 F 10/25/24 07:25 Pulse 70 10/25/24 07:25 Resp 16 10/25/24 07:25 BP 100/50 L 10/25/24 07:25 Pulse Ox 97 10/25/24 07:25 O2 Del Method Room Air 10/25/24 07:25 BMI result Body Mass Index 38.9 <Víctor Skinner PA-C - Last Filed: 10/25/24 12:45> Const: General: cooperative, no acute distress, alert and awake <Víctor Skinner PA-C - Last Filed: 10/25/24 12:45> Orientation/consciousness: patient oriented x3 <Víctor Skinner PA-C - Last Filed: 10/25/24 12:45> Resp: Effort & Inspection: normal respiratory effort and able to speak in complete sentences <Víctor Skinner PA-C - Last Filed: 10/25/24 12:45> GI: Other: diffuse abdominal pain, RLQ predomoinance <Víctor Skinner PA-C - Last Filed: 10/25/24 12:45> Inspection: No distended and Yes scar (Well-healed laparoscopic port sites noted from previous cholecystectomy) <HERNANDEZ Mora Last Filed: 10/25/24 12:45> Palpation (GI): Soft to palpation, Tenderness to palpation present (GI) in the RLQ and at McBurney's point; Rovsing's sign negative, no guarding, not rigid and No Rebound tenderness present <HERNANDEZ Mora Last Filed: 10/25/24 12:45> Neuro: General: patient oriented x3 <HERNANDEZ Mora Last Filed: 10/25/24 12:45> Results Results Labs: Short CBC 10/25/24 Range/Units 04:14 WBC 12.0 H (4.8-10.8) X10*3/uL Hgb 13.8 (12.0-16.0) g/dl Hct 40.4 (37.0-47.0) % Plt Count 264 D (160-400) X10*3/uL BMP 10/25/24 04:14 Sodium 139 Potassium 4.2 Chloride 105 Carbon Dioxide 24 BUN 11 Creatinine 0.77 Calcium 10.0 D Liver Function 10/25/24 Range/Units 04:14 Total Bilirubin 0.4 (0.0-1.0) mg/dL Direct Bilirubin 0.1 (0.0-0.5) mg/dL AST 25 (5-31) U/L ALT 26 (0-31) U/L Alkaline Phosphatase 69 (39-117) U/L Albumin 4.4 (3.5-5.0) g/dL Urine 10/25/24 Range/Units 04:14 Urine Color Yellow Urine Appearance Clear Urine pH >= 9.0 (5.0-9.0) Ur Specific [place] 1.020 (1.005-1.025) Urine Protein Negative (Neg-Trace) mg/dL Urine Glucose (UA) Negative (Negative) mg/dL <HERNANDEZ Mora Last Filed: 10/25/24 12:45> Assessment and Plan (1) Acute appendicitis: Qualifiers: Acute appendicitis type: with localized peritonitis Appendicitis abscess presence: without abscess Appendicitis gangrene presence: without gangrene Appendicitis perforation presence: without perforation Qualified Code(s): K35.30 - Acute appendicitis with localized peritonitis, without perforation or gangrene <HERNANDEZ Mora Last Filed: 10/25/24 12:45> Status: Acute <HERNANDEZ Mora Last Filed: 10/25/24 12:45> [age] year female with obesity, postural hypertension, with right lower quadrant pain since last night Exam is benign but she is tender in the right lower quadrant I have reviewed her CAT scan and this does show inflammatory changes in the appendix along with thickening consistent with acute appendicitis I have reviewed this with the radiologist as well She wants to proceed with laparoscopic appendectomy She understands the risks including but not limited to bleeding, infections, injury to other organs including bowel, staple line leak, injury to urinary tract, abscesses, wound complications, conversion to an open laparotomy, as well as the benefits and alternatives She does not want non surgical treatment She has been put on the add on schedule for today <Fabian Benjamin MD - Last Filed: 10/25/24 12:56> 59-year-old female presenting to the ED with right lower quadrant abdominal pain found to have acute appendicitis on imaging. Exam significant for right lower quadrant pain, her abdomen is nondistended without guarding rigidity. Patient experiencing nausea. Labs show leukocytosis, 12.0. CT shows acute appendicitis without evidence of perforation and mild periappendiceal inflammatory changes. We discussed possible interventions with the patient who ultimately decided to proceed with operative management. We discussed risks including but not limited to infection, bleeding. Patient understands risks. Patient is currently stable awaiting transfer to observation while she awaits surgical intervention via laparoscopic appendectomy, possible open. plan to admit patient to observation, proceed with surgical management this afternoon. Patient was made NPO, IV zosyn, IVF, pain management ordered. <Víctor Skinner PA-C - Last Filed: 10/25/24 12:45> Total time managing care of this patient today: 32 minutes. <Víctor Skinner PA-C - Last Filed: 10/25/24 12:45> Quality Stroke Does the patient have a stroke diagnosis?: No <Víctor Skinner PA-C - Last Filed: 10/25/24 12:45> VTE Prior VTE?: No <Víctor Skinner PA-C - Last Filed: 10/25/24 12:45> VTE Risk Level:: Surgical - moderate <Víctor Skinner PA-C - Last Filed: 10/25/24 12:45> VTE Device Contraindication: N/A - Device Ordered <Víctor Skinner PA-C - Last Filed: 10/25/24 12:45> VTE Drug Contraindication: Treatment Not Indicated <Víctor Skinner PA-C - Last Filed: 10/25/24 12:45> Procedures Date of Service Date of Service: 10/25/24 <Víctor Skinner PA-C - Last Filed: 10/25/24 12:45> 10/25/24 <Fabian Benjamin MD - Last Filed: 10/25/24 12:56>
--- NOTE | 2024-10-25 08:42 | PHA.MEDREC ---
Addendum entered by Karlene Watkins RPh 10/25/24 09:24: Reviewed by [facility] within [facility] Original Note: Pharmacy Consult ? Medication Reconciliation Pharmacy has completed the medication reconciliation. Spoke to patient to confirm med list. Patient was able to name all her medications.
[2024-10-25] MEDS: Piperacillin Sodium/Tazobactam 3.375 GM in 0.9 % Sodium Chloride 50 ML IV ×2 (13:58→19:50)
[2024-10-25] MEDS: Acetaminophen 325 MG TABLET 650 MG PO (14:08)
--- NOTE | 2024-10-25 15:03 | P.CONAN_ITS ---
HPI - Anesthesia Eval Consult details Narrative: 59 yo female patient for Laparoscopic Appendectomy PMFSH Active Problems Active Problems: All Active Problems Acute appendicitis (Acute) GERD POTS Increased BMI 38.9 Denies PIO Past Medical History Medical History POTS (postural orthostatic tachycardia syndrome) Family History Family history of problems with anesthesia: No Surgical History Surgical History (Updated 10/25/24 @ 16:02 by Rosi Raphael MD) S/P laparoscopic cholecystectomy History of Problems with Anesthesia: No Social History Social History Are you a primary healthcare educator to a significant other at home: No Do you presently have visiting nurse or other home services: No Alcohol intake: current Alcohol intake frequency: a few times a month Patient Tobacco Use Status: Former Tobacco user Tobacco use type: Cigarette Smoked in Last 30 Days: No Use of substances other than those prescribed or required for medical reasons: No Have you been hit, kicked, punched, or otherwise hurt by someone within the past year? If so, by whom?: No Are you DNR?: No Advance Directives: No Advance Directives Information Provided: No Advance Directives on File: No Do you have a plan to hurt others: No Plan Nutrition Risks: No Nutritional Risk Patient : No : No Poor oral hygiene: No Meds Allergies Allergy/AdvReac Type Severity Reaction Status Date / Time No Known Allergies Allergy Verified 10/25/24 14:30 Active Medications: Current Medications Acetaminophen (Acetaminophen 325 Mg Tablet) 650 mg PO Q6H PRN PRN Reason: Pain, Mild 1-3,fever,headache Last Admin: 10/25/24 14:08 Dose: 650 mg Calcium Carbonate (Calcium Carbonate 750 Mg Tab.Chew) 750 mg PO Q4H PRN PRN Reason: Heartburn Docusate Sodium (Docusate Sodium 100 Mg Capsule) 100 mg PO BID [facility] Last Admin: 10/25/24 08:20 Dose: Not Given Lactated Ringer's (Lr) 1,000 mls @ 100 mls/hr IVCONT .Q10H [facility] Last Infusion: 10/25/24 14:53 Dose: 0 mls/hr Piperacillin Sod/Tazobactam (Sod 3.375 gm/ Sodium Chloride) 50 mls @ 100 mls/hr IV Q6H [facility] Last Admin: 10/25/24 13:58 Dose: 100 mls/hr Magnesium Hydroxide (Milk Of Magnesia 30 Ml Oral.Susp) 30 ml PO DAILY PRN PRN Reason: Constipation Melatonin (Melatonin 3 Mg Tablet) 6 mg PO BEDTIME PRN PRN Reason: Insomnia Morphine Sulfate (Morphine Sulfate 4 Mg/Ml Cartridge) 4 mg IVPUSH Q4H PRN; Protocol PRN Reason: Pain, Severe (Pain Scale 7-10) Ondansetron HCl (Ondansetron Hcl 4 Mg/2 Ml Vial) 4 mg IVPUSH Q8H PRN PRN Reason: Nausea and Vomiting Sodium Chloride (0.9 % Sodium Chloride Flush 3 Ml Syringe) 3 ml IVFLUSH QSHIFT [facility] Home Medications ?Medication ?Instructions ?Recorded ?Confirmed ?Last Taken ?Type Lactobacillus rhamnosus GG 10 1 cap PO DAILY 10/25/24 10/25/24 10/24/24 History billion cell capsule (Culturelle) ascorbic acid (vitamin C) 500 mg 500 mg PO DAILY 10/25/24 10/25/24 10/24/24 History tablet (Vitamin C) cholecalciferol (vitamin D3) 25 25 mcg PO DAILY 10/25/24 10/25/24 10/24/24 History mcg (1,000 unit) tablet (Vitamin D3) meloxicam 15 mg tablet 15 mg PO DAILY PRN Pain 10/25/24 10/25/24 10/04/24 History metoprolol succinate 25 mg 25 mg PO DAILY 10/25/24 10/25/24 10/25/24 History tablet,extended release 24 hr midodrine 5 mg tablet 5 mg PO TIDWM PRN Hypotension 10/25/24 10/25/24 Unknown History omeprazole 40 mg capsule,delayed 40 mg PO DAILY@0630 10/25/24 10/25/24 10/24/24 History release zinc 10 mg tablet 10 mg PO DAILY 10/25/24 10/25/24 Unknown History Exam Height,Weight and Vital Signs: Height 5 ft 6 in Weight 109.2 kg Last Vital Signs Temp 99.2 F 10/25/24 14:31 Pulse 79 10/25/24 14:31 Resp 16 10/25/24 14:31 BP 124/64 10/25/24 14:31 Pulse Ox 99 10/25/24 14:31 O2 Del Method Room Air 10/25/24 14:31 Pertinent Lab Results Pertinent Lab Results: Laboratory Tests 10/25/24 04:14 WBC 12.0 H RBC 4.41 Hgb 13.8 Hct 40.4 MCV 91.6 MCH 31.3 MCHC 34.2 RDW 13.5 Plt Count 264 D MPV 8.4 L Immature Gran % (Auto) 0.7 H Neut % (Auto) 79.7 H Lymph % (Auto) 10.0 L Crowley % (Auto) 8.8 Eos % (Auto) 0.5 Baso % (Auto) 0.3 Lymph # (Auto) 1.2 Crowley # (Auto) 1.1 Eos # (Auto) 0.1 Baso # (Auto) 0.0 Abs Immat Gran (auto) 0.08 H Absolute Neuts (auto) 9.6 H Absolute Nucleated RBC 0.000 Nucleated RBC % (auto) 0.0 Sodium 139 Potassium 4.2 Chloride 105 Carbon Dioxide 24 Anion Gap 14 BUN 11 Creatinine 0.77 Estim Creat Clear Calc 96.0 Estimated GFR > 60 Random Glucose 123 H Calcium 10.0 D Total Bilirubin 0.4 Direct Bilirubin 0.1 AST 25 ALT 26 Alkaline Phosphatase 69 Total Protein 7.8 Albumin 4.4 Lipase 35 Urine Color Yellow Urine Appearance Clear Urine pH >= 9.0 Ur Specific [place] 1.020 Urine Protein Negative Urine Glucose (UA) Negative Urine Ketones Negative Urine Blood Negative Urine Nitrite Negative Ur Leukocyte Esterase Negative Airway Mallampati Class: III TM Dist: >3cm Neck ROM: Full Loose/Missing/Broken Teeth: Yes (Missing some teeth. Cap top left back. Denies broken or loose teeth) Heart: RRR Lungs: CTAB Assessment and Plan Assessment Anesthesia Assessment: Anesthesia Plan Discussed and Chart Reviewed Final Anesthetic Review Family History of Problems with Anesthesia: No History of Problems with Anesthesia: No NPO: Yes ASA Class: II and Emergency Final Preanesthetic Review: No Changes in Pt Med Stat, Meds/Allgs Chart Reviewed, Consent Obtained/Reviewed and Anes Risks/Benef Reviewed Patient Risk: Intermediate Procedure Risk: Intermediate Assessment/Block/Sedation in SS: Assess/Block/Sedation-SS Anesthetic Plan Anesthetic Plan: GA Disposition: Standard PACU
[2024-10-25] MEDS: fentaNYL citrate/PF 100 MCG/2 ML VIAL 25 MCG IVPUSH (17:07)
--- NOTE | 2024-10-25 17:59 | W.PM.OPN ---
Operative Note Operative Note Date of Service: 10/25/24 Narrative: Preop diagnosis: Acute appendicitis Postop diagnosis: Acute appendicitis, with severe induration, on the proximal 3rd of the appendix, with marked adhesions of the entire appendix towards the paracecal area laterally Procedure: Laparoscopic appendectomy Surgeon: Fabian Benjamin MD assistant professor of life sciences: LILY Cain The patient is a 59 year female with right lower quadrant pain from last night, with CT scan findings consistent with acute appendicitis. There appeared to be a lot of appendicolith as well within the lumen. She understood the technique of laparoscopic appendectomy. She was aware of the risks, benefits, and alternatives She was brought to the operating room. She was placed supine under general anesthesia via endotracheal tube. A Lovell catheter was inserted. The abdomen was prepped and draped in the usual sterile fashion. A surgical time-out was done. The patient was on scheduled IV antibiotics. I made a short infraumbilical incision with a blade 15. This was carried down through the full-thickness of the skin subcutaneous fat. The patient was morbidly obese so we had to go through thick amounts of subcutaneous fat before we are able to see the fascia. The fascia was incised. The peritoneum was entered. Through this incision a Conner port was introduced. Pneumoperitoneum was introduced to a pressure of 15 mm Hg. From here on the rest of procedure was done under vision with the 10 mm 30 degree laparoscope alternating with a 5 mm laparoscope With laparoscopic visualization and inserted a 5/12 mm port in the left lower quadrant. A 5 mm port was introduced through the suprapubic margin under vision as well The patient was placed in a steep head-down and [id number] position. We followed the cecum by doing so we are able to visualize the appendix. The base of the appendix was clearly seen we followed this. The appendix curved back towards the lateral aspect of the gutter and went superiorly. This was markedly adherent to the pericecal area on the right side as well as the sidewall itself. We did not have any initial mobilization of the entire appendix because of the marked adhesions and induration I therefore applied a grasper on the proximal 3rd of the appendix which was better defined and visualized. By putting this on stretch I was able to visualize the entire base of the appendix at the cecum. I did careful dissection with the [place] dissector to create a mesenteric window at the base. By doing so, as able to do a 360 degree dissection. I was able to apply the Endo-NATALIE 45 mm stapler across the base. This was fired and the appendix was transected. There was note of a tear in the appendix from the retraction but this was difficult to avoid in view of the markedly adherent appendix I was able to apply the grasper at the appendix proximally. By retracting this I was able to visualize the mesoappendix. I carefully dissected this with the [place] dissector and dividing this serially towards the distal appendix using the LigaSure. We were careful that we were away from the serosa of the cecum. By doing so, as able to visualize the distal 3rd of the appendix and was able to define the peritoneal attachments. This was also dissected with the LigaSure. We I was able to eventually carefully this define the distal 3rd and I used the LigaSure to divide the remaining mesenteric attachments. The appendix was therefore completely created. The appendix was retrieved through an endobag through the left lower quadrant incision I inserted our ports and re-insufflated I copiously irrigated. I observed for hemostasis. There was some oozing on the area of dissection but there was no evidence of any significant bleeder I examined all 4 quadrants. There was no evidence of bowel injury or any bile leak The staple line appeared intact. After further irrigation and suctioning, I we examined the dissection and this appeared dry. Once hemostasis was confirmed, I desufflated through the port sites. I removed all ports under vision with the laparoscope. The umbilical port was removed last The fascia of the umbilical incision was closed with a [id number] Polysorb 0 stitch. Skin closure was achieved on all incisions using Polysorb 4-0 subcuticular running sutures. All incisions were infiltrated with Marcaine 0.5% for postop analgesia. Dressings were applied. The procedure was completed The patient tolerated procedure well. There were no immediate complications. Initial final counts of sponges and instruments were correct. Estimated blood loss about 50 cc The patient was extubated without difficulty and transferred to the recovery room with stable vital signs.
--- NOTE | 2024-10-25 18:39 | PM.EVENT ---
Event Note Date of Service: 10/30/24 Event Note: seen postop appears comfortable says she has good pain control looks well abd soft stable VS diet as tolerated hope to dc home tomorrow Time Spent With Patient Time: Total time managing care of this patient today ____ minutes.
[2024-10-25] MEDS: oxyCODONE HCl Immed Release 5 MG TABLET PO (19:50)
[2024-10-25] MEDS: Docusate Sodium 100 MG CAPSULE PO (19:50)
[2024-10-26] MEDS: Piperacillin Sodium/Tazobactam 3.375 GM in 0.9 % Sodium Chloride 50 ML IV (01:43)
[2024-10-26] MEDS: oxyCODONE HCl Immed Release 5 MG TABLET PO (02:24)
[2024-10-26 04:00] VITALS: BP 107/56; PULSE 71; RESP 18; TEMP 36.8; O2SAT 94
[2024-10-26] MEDS: Lactated Ringers 1,000 ML 100 ML IVCONT (04:07)
[2024-10-26] MEDS: Omeprazole 40 MG CAPSULE.DR PO (05:27)
[2024-10-26 07:01] VITALS: BP 105/58; PULSE 77; RESP 16; TEMP 37.2; O2SAT 93
--- NOTE | 2024-10-26 07:30 | HO.POSTANES ---
Post Anesthesia Evaluation Post Anesthesia Evaluation Date of Service: 10/26/24 Vital Signs: Vital Signs Temp Pulse Resp BP Pulse Ox O2 Del Method 10/26/24 07:01 99 F 77 16 105/58 L 93 Room Air 10/26/24 04:00 98.3 F 71 18 107/56 L 94 Room Air 10/25/24 23:31 98.3 F 79 18 103/54 L 95 Room Air Anesthesia: General Endotracheal-GETA Mental Status: Awake Pain Control: Satisfactory Nausea/Vomiting: None Hydration: Adequate Comments: right trapezius muscle pain
--- NOTE | 2024-10-26 07:31 | P.PNGS_ITS ---
Subjective Subjective Date of Service: 10/26/24 <Zaira Cain PA-C - Last Filed: 10/26/24 07:34> 10/26/24 <Fabian Benjamin MD - Last Filed: 10/26/24 08:03> Interval history: Feels improved, c/o right shoulder pain. has mild incisional pain. Tolerating solid diet. OOB and ambulating to bathroom. Would like to go home. < Zaira Cain PA-C - Last Filed: 10/26/24 07:34> Physical Exam 2 Vital Signs: Vital Signs: Last Vital Signs Temp 99 F 10/26/24 07:01 Pulse 77 10/26/24 07:01 Resp 16 10/26/24 07:01 BP 105/58 L 10/26/24 07:01 Pulse Ox 93 10/26/24 07:01 O2 Del Method Room Air 10/26/24 07:01 O2 Flow Rate 2 10/25/24 16:47 FiO2 47 10/25/24 16:47 BMI result Body Mass Index 38.9 <Zaira Cain PA-C - Last Filed: 10/26/24 07:34> Const: General: comfortable, no acute distress and alert <HERNANDEZ Gonzalez Last Filed: 10/26/24 07:34> Orientation/consciousness: patient oriented x3 <HERNANDEZ Gonzalez Last Filed: 10/26/24 07:34> Resp: Effort & Inspection: normal respiratory effort <HERNANDEZ Gonzalez Last Filed: 10/26/24 07:34> Cardio: Rate: regular rate <HERNANDEZ Gonzalez Last Filed: 10/26/24 07:34> GI: Inspection: No distended and Yes incision (dressings intact ) < HERNANDEZ Gonzalez Last Filed: 10/26/24 07:34> Palpation (GI): Soft to palpation, Tenderness to palpation present (GI) (mild incisional) and no guarding <HERNANDEZ Gonzalez Last Filed: 10/26/24 07:34> Skin: General skin exam: no rashes or lesions noted <HERNANDEZ Gonzalez Filed: 10/26/24 07:34> Neuro: General: patient oriented x3 and moves all extremities <Zaira Cain PA-C - Last Filed: 10/26/24 07:34> Objective Data Active Medications Acetaminophen (Acetaminophen 325 Mg Tablet) 650 mg PO Q6H PRN PRN Reason: Pain, Mild 1-3,fever,headache Last Admin: 10/25/24 14:08 Dose: 650 mg Documented By: ERIKA Calcium Carbonate (Calcium Carbonate 750 Mg Tab.Chew) 750 mg PO Q4H PRN PRN Reason: Heartburn Docusate Sodium (Docusate Sodium 100 Mg Capsule) 100 mg PO BID [facility] Last Admin: 10/25/24 19:50 Dose: 100 mg Documented By: FATOUMATA Lactated Ringer's (Lr) 1,000 mls @ 100 mls/hr IVCONT .Q10H [facility] Last Admin: 10/26/24 04:07 Dose: 100 mls/hr Documented By: FATOUMATA Piperacillin Sod/Tazobactam (Sod 3.375 gm/ Sodium Chloride) 50 mls @ 100 mls/hr IV Q6H [facility] Last Infusion: 10/26/24 02:15 Dose: Infused Documented By: FATOUMATA Magnesium Hydroxide (Milk Of Magnesia 30 Ml Oral.Susp) 30 ml PO DAILY PRN PRN Reason: Constipation Melatonin (Melatonin 3 Mg Tablet) 6 mg PO BEDTIME PRN PRN Reason: Insomnia Metoprolol Succinate (Metoprolol Succinate Er 25 Mg Tab.Er.24h) 25 mg PO DAILY [facility]; Protocol Midodrine (Midodrine Hcl 5 Mg Tablet) 5 mg PO TIDWM PRN PRN Reason: Hypotension Morphine Sulfate (Morphine Sulfate 4 Mg/Ml Cartridge) 4 mg IVPUSH Q4H PRN; Protocol PRN Reason: Pain, Severe (Pain Scale 7-10) Omeprazole (Omeprazole 40 Mg Capsule.Dr) 40 mg PO DAILY@0630 [facility] Last Admin: 10/26/24 05:27 Dose: 40 mg Documented By: FATOUMATA Ondansetron HCl (Ondansetron Hcl 4 Mg/2 Ml Vial) 4 mg IVPUSH Q8H PRN PRN Reason: Nausea and Vomiting Oxycodone HCl (Oxycodone Hcl Immed Release 5 Mg Tablet) 5 mg PO Q4H PRN PRN Reason: Pain, Moderate(Pain Scale 4-6) Last Admin: 10/26/24 02:24 Dose: 5 mg Documented By: FATOUMATA Sodium Chloride (0.9 % Sodium Chloride Flush 3 Ml Syringe) 3 ml IVFLUSH QSHIFT [facility] Last Admin: 10/25/24 20:45 Dose: Not Given Documented By: FATOUMATA Non-Admin Reason: IV Running <Zaira Cain PA-C - Last Filed: 10/26/24 07:34> Labs CBC & Chem 7: 10/25/24 04:14 10/25/24 04:14 <Zaira Cain PA-C - Last Filed: 10/26/24 07:34> Procedures Date of Service Date of Service: 10/26/24 <Zaira Cain PA-C - Last Filed: 10/26/24 07:34> 10/26/24 <Fabian Benjamin MD - Last Filed: 10/26/24 08:03> Progress Note: A&P Assessment and plan (1) Acute appendicitis: Status: Acute <Zaira Cain PA-C - Last Filed: 10/26/24 07:34> Assessment and Plan: Status post laparoscopic appendectomy She says she had a good night Feels well overall Tolerating diet Good pain control Looks well She says she is ready to be discharged I have reviewed with the discharge instructions extensively I will see her in the office for follow-up Seen and examined independently <Fabian Benjamin MD - Last Filed: 10/26/24 08:03> (2) S/P laparoscopic appendectomy: Status: Acute <Zaira Cain PA-C - Last Filed: 10/26/24 07:34> Assessment and Plan: POD #1 s/p laparoscopic appendectomy. Overall feels well, c/o referred right shoulder pain. VSS. Abd benign with appropriate post op tenderness. Dressings intact. Stable for dc to home today. F/u in office in 2 weeks. Patient comfortable with plan. <HERNANDEZ Gonzalez Last Filed: 10/26/24 07:34> Time Spent With Patient Time: Total time managing care of this patient today ____ minutes. <Zaira Cain PA-C - Last Filed: 10/26/24 07:34> Quality Stroke Does the patient have a stroke diagnosis?: No <Zaira Cain PA-C - Last Filed: 10/26/24 07:34> VTE Prior VTE?: No <Zaira Cain PA-C - Last Filed: 10/26/24 07:34> VTE Risk Level:: Surgical - moderate <Zaira Cain PA-C - Last Filed: 10/26/24 07:34> VTE Device Contraindication: N/A - Device Ordered <Zaira Cain PA-C - Last Filed: 10/26/24 07:34> VTE Drug Contraindication: Treatment Not Indicated <Zaira Cain PA-C - Last Filed: 10/26/24 07:34>
--- NOTE | 2024-10-26 09:34 | MHC.CM.PN ---
Patient dc'd home self care via private transport prior to CM assessment.
--- NOTE | 2024-10-26 09:51 | P.DS_ITS ---
DS: Providers Provider Date of Service: 10/26/24 Date of admission: 10/25/24 08:10 Date of discharge: 10/26/24 Primary care physician: Cleve Dotson MD Attending physician on admission: Fabian Benjamin Attending physician on discharge: Fabian Benjamin DS: Diagnosis Discharge Diagnosis (1) Acute appendicitis: Status: Acute (2) S/P laparoscopic appendectomy: Status: Acute DS: Summary Hospital Course Hospital Course: HPI AT ADMISSION: Marilyn Bates is a 59 year old female experiencing abdominal pain that began last night. Patient was out to dinner when her pain began, and it gradually increased throughout the night. Pain worsened, and she eventually became nauseous and had an episode of vomiting in which she notes undigested food. She is still having generalized abdominal pain with the epicenter benign the right lower quadrant. Still experiencing nausea. States she felt chills last night, did not take her temperature. Surgical history includes laparoscopic cholecystectomy. She has not had anything to eat since last night. Patient denies smoking endorses occasional alcohol use. CAT scan shows inflammatory changes in the appendix along with thickening consistent with acute appendicitis. She had a mild leukocytosis. HOSPITAL COURSE: The patient was admitted to the surgical service for further treatment of the acute appendicitis. She elected to proceed with laparoscopic appendectomy. She was added onto the OR schedule for that day. On 10/25/24, a laparoscopic appendectomy was performed by Dr. Benjamin without complication. Intraoperative findings showed acute appendicitis, with severe induration, on the proximal 3rd of the appendix, with marked adhesions of the entire appendix towards the paracecal area laterally. The patient tolerated the procedure well. He had an uncomplicated recovery course. On POD #1, she felt well and was tolerating a solid diet without nausea or vomiting, had good pain control and was ambulating without difficulty. She was hemodynamically stable. Her abdomen was benign with appropriate post op tenderness and clean and intact dressings. She felt ready for discharge. She was discharged to home on 10/26/24 in stable condition. She is to follow up in the office in 2 weeks. Status at Discharge Functional status at discharge: independent ambulation Overall status at discharge: patient is progressing back to baseline Time Attestation Discharge Coordination Time (in mins): 25 Quality: Safe Use of Opioids Does Pt have an Active Cancer Diagnosis on the Problem List?: No Quality: Stroke Does the patient have a stroke diagnosis?: No Physical Exam Vital Signs: Vital Signs: Last Vital Signs Temp 99 F 10/26/24 07:01 Pulse 77 10/26/24 07:01 Resp 16 10/26/24 07:01 BP 105/58 L 10/26/24 07:01 Pulse Ox 93 10/26/24 07:01 O2 Del Method Room Air 10/26/24 07:01 O2 Flow Rate 2 10/25/24 16:47 FiO2 47 10/25/24 16:47 BMI result Body Mass Index 38.9 Const: General: comfortable, no acute distress and alert Orientation/consciousness: patient oriented x3 Resp: Effort & Inspection: normal respiratory effort GI: Inspection: Yes incision (dressings intact) Palpation (GI): Soft to palpation, Tenderness to palpation present (GI) (mild incisional) and no guarding Percussion: Yes normal to percussion Skin: General skin exam: no rashes or lesions noted Neuro: General: patient oriented x3 and moves all extremities DS: Data Data Completed and Pending Pending studies at discharge: Pending at discharge 10/25/24 16:09 Surgical [PTH] Routine Discharge Plan Discharge Anticipated Discharge Date/Time: 10/26/24 07:25 Patient Disposition: Home, Self-Care Discharge Diagnosis: acute appendicitis, s/p laparoscopic appendectomy Referrals: Fabian Benjamin MD [Physician] - 2 Weeks Cleve Hale MD [Primary Care Provider] - 1 Week Discharge Medications: New docusate sodium [Colace] 100 mg capsule 100 mg PO BID Qty: 30 0RF oxycodone 5 mg tablet 5 mg PO Q4H PRN (Reason: pain (scale score 7-10)) Qty: 24 0RF Rx Instructions: Partial Fill upon patient request. Continued meloxicam 15 mg tablet 15 mg PO DAILY PRN (Reason: Pain) midodrine 5 mg tablet 5 mg PO TIDWM PRN (Reason: Hypotension) Rx Instructions: take omeprazole 40 mg capsule,delayed release(DR/EC) 40 mg PO DAILY@0630 metoprolol succinate 25 mg tablet extended release 24 hr 25 mg PO DAILY ascorbic acid (vitamin C) [Vitamin C] 500 mg Tablet 500 mg PO DAILY Culturelle 10 billion cell Capsule 1 cap PO DAILY cholecalciferol (vitamin D3) [Vitamin D3] 25 mcg (1,000 unit) Tablet 25 mcg PO DAILY zinc 10 mg Tablet 10 mg PO DAILY Discharge Orders: Discharge Order (Routine); Ordered 10/26/24 Ordered By: Zaira Cain Diet: Advance to usual diet Activity on Discharge: No heavy lifting Stand Alone Forms: Patient Portal Discharge page Print Language: Estonian Activity Restrictions/Additional Instructions: If the incision area is tender, you may apply an ice pack for short intervals (No more than 20 minutes on, followed by at least 20 minutes off). Do not apply heat. Do not use creams, lotions, or topical antibiotics. These can cause infection or allergic reaction. Ok to shower 24 hours after your surgery. Remove bandaids in 2 days and replace. You have steri strips (small white cloth strips) covering your incision- these will fall off ~1 week. Follow up in office with Dr. Benjamin in 2 weeks. ([phone]) No heavy lifting (>10-20lbs) or strenuous activity! Call Your Doctor If: -Your temperature exceeds 101.5? F -You experience excessive pain or swelling -You have an unexpected reaction to medication -You have excessive bleeding -You experience continued vomiting/nausea -Your incision begins to separate -Your incision shows signs of infection such as increased redness, swelling, excessive pain, drainage (light blood or clear fluid is normal) or heat Care Plan Goals: Return to baseline health and resume normal activities following recovery period. Health Concerns: acute appendicitis POTS GERD Plan of Treatment: s/p laparoscopic appendectomy pain control f/u in office in 2 weeks Assessment: Doing well post op Patient Instructions: Laparoscopic Appendectomy (DC) Discharge Date/Time: 10/26/24 09:25
== END 2024-10-26 09:25 | disposition home or self-care (01) ==
LOC: HO.ED 07:46 → HO.EDOVER 08:34 → HO.S3 12:30
PROVIDERS: Surgery; Emergency Provider Emergency Medicine Emergency Medical Services; PCP Family Medicine
PROC: 0DTJ4ZZ Resection of Appendix, Percutaneous Endoscopic Approach (ICD-10-PCS; CPT 44970; principal; 2024-10-25 15:00)
DX: K35.30 Acute appendicitis with localized peritonitis, without perforation or gangrene (principal); R10.31 Right lower quadrant pain; R11.2 Nausea with vomiting, unspecified; G90.A Postural orthostatic tachycardia syndrome [POTS]; N28.1 Cyst of kidney, acquired; K76.89 Other specified diseases of liver; Z79.899 Other long term (current) drug therapy
CPT/HCPCS: 44970; 36415; 74177; 80053; 81003; 82248; 83690; 85025; 88304; 93005; 96361; 96365; 96366; 96375; 96376; 99221; 99285; J0131; J1100; J1885; J2003; J2270; J2405; J2543; J2704; J2795; J3010; J7120; Q9967

== ENCOUNTER → 2024-10-25 05:30 | Outpatient (BNV) | payer OTHER, SELFPAY | PROVIDERS: Emergency Provider Emergency Medicine Emergency Medical Services; PCP Family Medicine; Visit Provider Radiology Diagnostic Radiology | DX: K35.890 Other acute appendicitis without perforation or gangrene (principal); N28.1 Cyst of kidney, acquired; K76.89 Other specified diseases of liver | CPT/HCPCS: 74177 ==

== ENCOUNTER → 2024-10-25 07:43 | Outpatient (BNV) | payer OTHER, SELFPAY | PROVIDERS: Emergency Provider Emergency Medicine Emergency Medical Services; PCP Family Medicine; Visit Provider Internal Medicine Cardiovascular Disease | DX: R94.31 Abnormal electrocardiogram [ECG] [EKG] (principal); K35.80 Unspecified acute appendicitis | CPT/HCPCS: 93010 ==

== ENCOUNTER → 2024-10-25 08:10 | Outpatient (BNV) | payer OTHER, SELFPAY | PROVIDERS: Emergency Provider Emergency Medicine Emergency Medical Services; PCP Family Medicine; Visit Provider Physician Assistant Surgical | DX: K35.30 Acute appendicitis with localized peritonitis, without perforation or gangrene (principal); Z90.49 Acquired absence of other specified parts of digestive tract | CPT/HCPCS: 99024 ==

== ENCOUNTER 2024-11-13 10:31 | Outpatient (AMB) | payer OTHER, SELFPAY ==
--- NOTE | 2024-11-13 10:45 | A.OFFVIS_ITS ---
Vital Signs 11/13/24 10:51 Height 5 ft 6 in Weight 235 lb BMI 37.9 BP 113/65 Blood Pressure Location Lt brachial Position Sitting Pulse 89 Intake Visit Reasons: s/p appendectomy 10/25 Intake Note: Patient is seen in office for post op assessment post laparoscopic appendectomy. Pt c/o:denies any concerns, healing as expected surgery:10/25/24 Hair Blender Required: No Accompanied by: Self / Same As Patient Allergies No Known Allergies Allergy (Verified 11/13/24 10:51) HPI HPI s/p appendectomy 10/25: Details: Patient presents for follow up. She underwent laparoscopic appendectomy with Dr. Benjamin on 10/25/24 and was discharged on 10/26/24. She tolerated the procedure well. She reports taking oxycodone for 2 days following the procedure and has not needed anything for pain following. She notices some pulling at the incision sites with some activity but reports this is mild. She is eating a solid diet without nausea or vomiting. She is having normal daily bowel movements. She overall feels well and has no concerns. [facility] Medical History POTS (postural orthostatic tachycardia syndrome) Surgical History History of laparoscopic appendectomy (10/25/24) S/P laparoscopic cholecystectomy Social History Are you a primary acute care clinical nurse specialist to a significant other at home: No Do you presently have visiting nurse or other home services: No Alcohol intake: current Alcohol intake frequency: a few times a month Comment: tolerable Patient Tobacco Use Status: Former Tobacco user Tobacco use type: Cigarette Review of Systems Const Denies chills and Denies fever(s) ENT Denies dizziness Card Denies dyspnea Resp Denies dyspnea GI Reports as per HPI Skin/Breast Denies rash Neuro Denies dizziness Physical Exam Vital Signs: Last Vital Signs Pulse 89 11/13/24 10:51 BP 113/65 11/13/24 10:51 BMI result Body Mass Index 37.9 Const General: comfortable, no acute distress and alert Orientation/consciousness: patient oriented x3 Resp Effort & Inspection: normal respiratory effort GI Other: incisions well healed, no erythema or edema Palpation (GI): Soft to palpation, nontender and no guarding Percussion: Yes normal to percussion Skin General skin exam: no rashes or lesions noted Neuro General: patient oriented x3 Results Reviewed Results Reviewed: Vermiform appendix, appendectomy: Gangrenous and suppurative appendicitis and periappendicitis Assessment & Plan Assessment & Plan (1) S/P laparoscopic appendectomy: Code(s): Z90.49 - Acquired absence of other specified parts of digestive tract Category: Surgical Plan 59 year old female s/p laparoscopic appendectomy on 10/25/24. She tolerated the procedure well and continues to do well post operatively. Her abdomen is benign and her incisions are clean appearing without evidence of infection. She was educated to continue another week of no heavy lifting or strenuous exercises. She can follow up as needed. All questions answered. Medications: Discontinued oxycodone Partial Fill upon patient request. Discontinued Reason: Patient Completed Course 5 mg PO Q4H PRN 24 tabs 0RF pain (scale score 7-10) Coding Level of Care Code Global (98849) Diagnoses S/P laparoscopic appendectomy Z90.49
[2024-11-13 10:51] VITALS: BP 113/65; PULSE 89; BMI 37.9
--- OUTSIDE RECORDS SUMMARY | 2024-11-13 11:10 | XMS_ITS | Patient Health Record ---
Author Organization [facility] Address [address] [address] Care Team Providers Care Floral Decorator Name Role Phone Milagro Recinos Unavailable [phone] Reason For Referral No Information Encounters Encounter Location Date Provider Diagnosis [facility] [address] [address] 07/11/2024 Milagro Recinos Plan Of Treatment No Information Insurance Providers Payer Name Payer Address Payer Phone Subscriber Number Group Number Insured Name Patient Relationship to Insured Coverage Start Date Coverage End Date [employer] [address] [place], [place] [id number] [phone] JOSE D GALLEGOS Self - patient is the insured
--- OUTSIDE RECORDS SUMMARY | 2024-11-13 11:10 | XMS_ITS ---
Author Organization [facility] Address [address] [address] Care Team Providers Care Calender Runner Name Role Phone Milagro Recinos Unavailable [phone] REASON FOR VISIT Annual HEAT TREATMENT TECHNICIAN Physical Encounters Encounter Location Date Provider Diagnosis [email or web address] [address] [address] 07/11/2024 Milagro Recinos Plan Of Treatment No Information Progress Notes * JALEN GALLEGOSADOB:1965 (59 yo F)Acc No.[id number]:07/11/2024 Progress Note Patient:?JOSE D GALLEGOS Appointment Provider:?Milagro gilmore M.D. :1965???Age:58 Y???Sex:Female D ate:07/11/2024 Address:[address] [place], [place] [id number] Subjective: * Chief Complaints: * ???1. Annual HEAT TREATMENT TECHNICIAN Physical. * Medical History:? Objective: * Vitals:? Assessment: Plan: * Treatment: * Images: Billing Information: * Visit Code:? * Procedure Codes:? * Electronic signature of Maegan Recinos MD on 11/13/2024 at 11:10 AM EDT Sign off status: Pending * Appointment Provider:?Milagro Recinos M.D. Date:?07/11/2024 Generated for Aubrey oconnell/Marlena/Santysmitting on:?11/13/2024 11:10 AM EDT
== END 2024-11-13 11:16 | disposition home or self-care (01) ==
LOC: HO.HGS 10:32
PROVIDERS: PCP Family Medicine; Visit Provider Physician Assistant Surgical
DX: Z90.49 Acquired absence of other specified parts of digestive tract (principal)
CPT/HCPCS: 99024

== ENCOUNTER → 2024-11-13 10:31 | Outpatient (BNVA) | payer OTHER, SELFPAY | PROVIDERS: PCP Family Medicine; Visit Provider Physician Assistant Surgical | DX: Z90.49 Acquired absence of other specified parts of digestive tract (principal) | CPT/HCPCS: 99212 ==